=== PATIENT | male | born 1970 | race Caucasian/White ===

== ENCOUNTER 2019-08-22 06:43 | Emergency (ER) | payer SELFPAY ==
--- NOTE | 2019-08-22 07:27 | EDM.PDOC ---
ED HPI GENERAL MEDICAL PROBLEM - General Chief Complaint: Abdominal Pain Stated Complaint: BLOCKAGE Time Seen by Provider: 08/22/19 07:19 Source of Information: Reports: Patient History Limitations: Reports: No Limitations - History of Present Illness INITIAL COMMENTS - FREE TEXT/NARRATIVE: This 49 year old male is admitted to the ED with a chief complaint of upper abdominal pain with nausea and vomiting for three days. He complains of having at least 25 very loose stools over the past three days. He states that he feels that he has a "blockage". He denies chest pain or SOB He is status post appendectomy years ago. He denies any other symptoms at this time. Onset: Gradual (three days) Location: Reports: Abdomen Quality: Reports: Dull, Sharp Severity: Mild (to moderate) Associated Symptoms: Reports: Nausea/Vomiting, Other (diarrhea) Abdomen Pain Score (Numeric/FACES): 9 - Related Data Allergies Allergy/AdvReac Type Severity Reaction Status Date / Time doxycycline Allergy Rash Verified 08/22/19 06:56 Home Meds: Home Meds Pantoprazole Sodium [Protonix] 40 mg PO DAILY 30 Days #30 tablet. 08/22/19 [Rx ] metroNIDAZOLE [Flagyl] 500 mg PO DAILY 7 Days #7 tab 08/22/19 [Rx] Past Medical History HEENT History: Reports: None Cardiovascular History: Reports: None Respiratory History: Reports: None Gastrointestinal History: Reports: Other (See Below) Other Gastrointestinal History: Intestinal Obstruction Genitourinary History: Reports: None Musculoskeletal History: Reports: None Neurological History: Reports: None Psychiatric History: Reports: None Insulin Pump Model and Steam Box Hand: None Hematologic History: Reports: None Immunologic History: Reports: None Oncologic (Cancer) History: Reports: None Dermatologic History: Reports: None - Infectious Disease History Infectious Disease History: Reports: None - Past Surgical History Head Surgeries/Procedures: Reports: None Musculoskeletal Surgical History: Reports: Other (See Below) Other Musculoskeletal Surgeries/Procedures:: Back Surgery Social & Family History - Family History Family Medical History: Noncontributory - Tobacco Use Smoking Status *Q: Current Every Day Smoker Years of Tobacco use: 40 Packs/Tins Daily: 0.5 - Caffeine Use Caffeine Use: Reports: Coffee, Soda - Recreational Drug Use Recreational Drug Use: No ED ROS GENERAL - Review of Systems Review Of Systems: See Below Constitutional: Reports: No Symptoms HEENT: Reports: No Symptoms Respiratory: Reports: No Symptoms Cardiovascular: Reports: No Symptoms Endocrine: Reports: No Symptoms GI/Abdominal: Reports: Abdominal Pain, Diarrhea, Nausea, Vomiting : Reports: No Symptoms Musculoskeletal: Reports: No Symptoms Skin: Reports: No Symptoms Neurological: Reports: No Symptoms ED EXAM, GI/ABD - Physical Exam Exam: See Below Exam Limited By: No Limitations General Appearance: Alert (but was complaining of upper abdominal pain), WD/WN, No Apparent Distress Throat/Mouth: Normal Inspection, Normal Oropharynx, Normal Voice, No Airway Compromise Head: Atraumatic, Normocephalic Neck: Normal Inspection, Supple, Non-Tender, Full Range of Motion Respiratory/Chest: No Respiratory Distress, Lungs Clear, Normal Breath Sounds Cardiovascular: Normal Peripheral Pulses, Regular Rate, Rhythm, No Gallop, No JVD, No Murmur GI/Abdominal Exam: Soft, No Organomegaly, No Abnormal Bruit, No Mass, Distended , Tender (tenderness noted across the entire upper abdomen), Abnormal Bowel Sounds (hypoactive to hyper active) (Male) Exam: Deferred Rectal (Males) Exam: Normal Exam, Prostate Normal, Heme - Stool Back Exam: Normal Inspection Extremities: Normal Inspection, Normal Range of Motion, No Pedal Edema, Normal Capillary Refill Neurological: Alert, Oriented (times 4), CN II-XII Intact, Normal Cognition, Normal Reflexes Psychiatric: Normal Affect, Normal Mood Skin Exam: Warm, Dry, Intact, Normal Color, No Rash Lymphatic: No Adenopathy Course - Vital Signs Text/Narrative:: The patient will be discharged. He most likely has gastroenteritis and probably passed a kidney stone. He will be discharged. He agrees with the discharge plan. Last Recorded V/S: Last Vital Signs Temp 97.1 F 08/22/19 11:48 Pulse 70 08/22/19 11:48 Resp 18 08/22/19 11:48 BP 135/94 H 08/22/19 11:48 Pulse Ox 99 08/22/19 11:48 - Orders/Labs/Meds Orders: Active Orders 24 hr Category Date Time Status Pantoprazole [ProTONIX IV] 40 mg Med 08/23/19 11:54 Active Sodium Chloride 0.9% [Normal Saline] 10 ml IV ONETIME metroNIDAZOLE/Normal Saline [Flagyl 500 MG in NS 100 ML Med 08/22/19 11:52 Active ] 500 mg Premix Bag 1 bag IV ONETIME Medication Orders Metronidazole 500 mg/ Premix 100 mls @ 100 mls/hr IV ONETIME ONE Stop: 08/22/19 12:51 Pantoprazole Sodium 40 mg/ (Sodium Chloride) 10 mls @ 300 mls/hr IV ONETIME ONE Stop: 08/23/19 11:55 Labs: Laboratory Tests 08/22/19 08/22/19 08/22/19 Range/Units 07:20 07:20 07:35 WBC 9.08 (4.0-11.0) K/uL RBC 4.82 (4.50-5.90) M/uL Hgb 15.1 (13.0-17.0) g/dL Hct 44.5 (38.0-50.0) % MCV 92.3 (80.0-98.0) fL MCH 31.3 (27.0-32.0) pg MCHC 33.9 (31.0-37.0) g/dL RDW Std Deviation 42.7 (28.0-62.0) fl RDW Coeff of Daniel 13 (11.0-15.0) % Plt Count 247 (150-400) K/uL MPV 9.40 (7.40-12.00) fL Neut % (Auto) 70.3 (48.0-80.0) % Lymph % (Auto) 16.2 (16.0-40.0) % [place] % (Auto) 11.7 (0.0-15.0) % Eos % (Auto) 1.7 (0.0-7.0) % Baso % (Auto) 0.1 (0.0-1.5) % Neut # (Auto) 6.4 H (1.4-5.7) K/uL Lymph # (Auto) 1.5 (0.6-2.4) K/uL [place] # (Auto) 1.1 H (0.0-0.8) K/uL Eos # (Auto) 0.2 (0.0-0.7) K/uL Baso # (Auto) 0.0 (0.0-0.1) K/uL Nucleated RBC % 0.0 /100WBC Nucleated RBCs # 0 K/uL Sodium 141 (136-148) mmol/L Potassium 3.6 (3.5-5.1) mmol/L Chloride 105 (98-107) mmol/L Carbon Dioxide 27.4 (21.0-32.0) mmol/L BUN 11 (7.0-18.0) mg/dL Creatinine 0.9 (0.8-1.3) mg/dL Est Cr Clr Drug Dosing 98.19 mL/min Estimated GFR (MDRD) > 60.0 ml/min Glucose 105 (74-106) mg/dL Calcium 8.6 (8.5-10.1) mg/dL Magnesium 1.8 (1.8-2.4) mg/dL Total Bilirubin 0.5 (0.2-1.0) mg/dL AST 12 L (15-37) IU/L ALT 22 (14-63) IU/L Alkaline Phosphatase 85 (46-116) U/L Total Protein 6.6 (6.4-8.2) g/dL Albumin 3.5 (3.4-5.0) g/dL Globulin 3.1 (2.6-4.0) g/dL Albumin/Globulin Ratio 1.1 (0.9-1.6) Lipase 47 L (73-393) U/L Urine Color DARK YELLOW Urine Appearance SLT CLOUDY Urine pH 6.0 (5.0-8.0) Ur Specific [place] >= 1.030 (1.001-1.035) Urine Protein NEGATIVE (NEGATIVE) mg/dL Urine Glucose (UA) NEGATIVE (NEGATIVE) mg/dL Urine Ketones NEGATIVE (NEGATIVE) mg/dL Urine Occult Blood LARGE H (NEGATIVE) Urine Nitrite NEGATIVE (NEGATIVE) Urine Bilirubin NEGATIVE (NEGATIVE) Urine Urobilinogen 0.2 (<2.0) EU/dL Ur Leukocyte Esterase NEGATIVE (NEGATIVE) Urine RBC 10-15 (0-2/HPF) Urine WBC 1-2 (0-5/HPF) Ur Epithelial Cells RARE (NONE-FEW) Calcium Oxalate Crystal MANY (NEGATIVE) Urine Bacteria FEW (NEGATIVE) Urine Mucus MODERATE (NONE-MOD) Meds: Medications Generic Name Dose Route Start Last Admin Trade Name Freq PRN Reason Stop Dose Admin Metronidazole 500 mg/ Premix 100 mls @ 100 mls/hr 08/22/19 11:52 IV 08/22/19 12:51 ONETIME ONE Pantoprazole Sodium 40 mg/ 10 mls @ 300 mls/hr 08/23/19 11:54 Sodium Chloride IV 08/23/19 11:55 ONETIME ONE Discontinued Medications Generic Name Dose Route Start Last Admin Trade Name Jas PRN Reason Stop Dose Admin Sodium Chloride 1,000 mls @ 1,000 mls/hr 08/22/19 07:34 08/22/19 07:43 Normal Saline IV 08/22/19 08:33 1,000 mls/hr .Bolus ONE Administration Metronidazole Confirm 08/22/19 11:59 Flagyl 500 Mg In Ns 100 Ml Administered 08/22/19 12:00 Dose 100 mls @ as directed .ROUTE .STK-MED ONE Iopamidol 100 ml 08/22/19 08:27 08/22/19 08:27 Isovue Multipack-370 (76%) IVPUSH 08/22/19 08:28 100 ml ONETIME ONE Administration Morphine Sulfate 4 mg 08/22/19 07:59 08/22/19 08:08 Morphine IVPUSH 08/22/19 08:00 4 mg ONETIME ONE Administration Ondansetron HCl 4 mg 08/22/19 07:34 08/22/19 07:43 Zofran IVPUSH 08/22/19 07:35 4 mg ONETIME ONE Administration Departure - Departure Time of Disposition: 12:08 Disposition: Home, Self-Care 01 Condition: Good Clinical Impression: Gastroenteritis, Hematuria of unknown etiology - Discharge Information *PRESCRIPTION DRUG MONITORING PROGRAM REVIEWED*: Yes *COPY OF PRESCRIPTION DRUG MONITORING REPORT IN PATIENT RODOLFO: Yes Prescriptions: metroNIDAZOLE [Flagyl] 500 mg PO DAILY 7 Days #7 tab Pantoprazole Sodium [Protonix] 40 mg PO DAILY 30 Days #30 tablet. Instructions: Viral Gastroenteritis, Adult, [id number], Hematuria, Adult Referrals: PCP,None [Primary Care Provider] - Forms: ED Department Discharge Additional Instructions: Take all medications as directed. Follow up with your PCP in the next two to four days. Also, follow up with a Urologist for further evaluation of the blood in your urine. Drink plenty of clear liquids for the next 24-48 hours. Rest for the next 24 hours. Return to the ED if your condition gets worse or should you have any questions or concerns. The following information is given to patients seen in the emergency department who are being discharged to home. This information is to outline your options for follow-up care. We provide all patients seen in our emergency department with a follow-up referral. The need for follow-up, as well as the timing and circumstances, are variable depending upon the specifics of your emergency department visit. If you don't have a primary care physician on staff, we will provide you with a referral. We always advise you to contact your personal physician following an emergency department visit to inform them of the circumstance of the visit and for follow-up with them and/or the need for any referrals to a consulting specialist. The emergency department will also refer you to a specialist when appropriate. This referral assures that you have the opportunity for follow-up care with a specialist. All of these measure are taken in an effort to provide you with optimal care, which includes your follow-up. Under all circumstances we always encourage you to contact your private physician who remains a resource for coordinating your care. When calling for follow-up care, please make the office aware that this follow-up is from your recent emergency room visit. If for any reason you are refused follow-up, please contact the [facility] Emergency Department at and asked to speak to the emergency department charge nurse. Sepsis Event Note - Evaluation Sepsis Screening Result: No Definite Risk - Focused Exam Vital Signs: Vital Signs Temp Pulse Resp BP Pulse Ox 08/22/19 11:48 97.1 F 70 18 135/94 H 99 08/22/19 11:27 145/97 H 08/22/19 09:55 75 18 135/87 97 08/22/19 09:35 77 18 143/92 H 97 08/22/19 09:05 72 18 153/99 H 08/22/19 08:10 78 18 151/93 H 98 08/22/19 07:55 77 139/89 97 08/22/19 06:59 97.3 F 72 18 136/101 H 98 Date Exam was Performed: 08/22/19 Time Exam was Performed: 12:08 - My Orders Last 24 Hours: My Active Orders 08/22/19 11:52 metroNIDAZOLE/Normal Saline [Flagyl 500 MG in NS 100 ML] 500 mg Premix Bag 1 bag IV ONETIME 08/23/19 11:54 Pantoprazole [ProTONIX IV] 40 mg Sodium Chloride 0.9% [Normal Saline] 10 ml IV ONETIME - Assessment/Plan Last 24 Hours: My Active Orders 08/22/19 11:52 metroNIDAZOLE/Normal Saline [Flagyl 500 MG in NS 100 ML] 500 mg Premix Bag 1 bag IV ONETIME 08/23/19 11:54 Pantoprazole [ProTONIX IV] 40 mg Sodium Chloride 0.9% [Normal Saline] 10 ml IV ONETIME
[2019-08-22] MEDS ORDERED: Ondansetron 4 MG/2 ML SDV IVPUSH ONE (07:34)
[2019-08-22] MEDS ORDERED: Sodium Chloride 0.9% 1,000 ML IV ONE (07:34)
[2019-08-22 07:56] LABS: BLOOD UREA NITROGEN,BUN 11 mg/dL (7.0-18.0); CARBON DIOXIDE,CO2 27.4 mmol/L (21.0-32.0); CHLORIDE,CL 105 mmol/L (98-107); GLUCOSE RANDOM 105 mg/dL (74-106); LIPASE 47 U/L (73-393); POTASSIUM,K 3.6 mmol/L (3.5-5.1); SODIUM,NA 141 mmol/L (136-148)
[2019-08-22] MEDS ORDERED: Morphine 4 MG/ML Syringe IVPUSH ONE (07:59)
--- NOTE | 2019-08-22 08:13 | CR ---
Chest: Portable view of the chest was obtained. Comparison: No prior chest imaging. Heart size and mediastinum are normal. Lungs are clear with no acute parenchymal change. Bony structures are grossly intact. Impression: 1. Nothing acute is appreciated on portable chest x-ray. Diagnostic code #1 Study was dictated in MDT
[2019-08-22] MEDS ORDERED: Iopamidol 755 MG/ML 500 ML Multipack Bottle IVPUSH ONE (08:27)
--- NOTE | 2019-08-22 08:50 | CT ---
CT abdomen and pelvis Technique: Multiple axial sections were obtained from above the dome of the diaphragm inferiorly through the pubic symphysis. Intravenous contrast was utilized. No oral contrast has been given. Comparison: No prior abdominal imaging. Findings: Visualized lung bases show nothing acute. Liver contains no focal parenchymal abnormality. Spleen appears within normal limits. Adrenal glands show no nodule. Pancreas is within normal limits. Kidneys show symmetric contrast enhancement without hydronephrosis or mass. Aorta shows atherosclerotic calcification which continues into the iliac vessels. No retroperitoneal adenopathy or mesenteric abnormalities are seen. No pelvic mass or adenopathy is identified. Appendix not visualized with certainty. No free fluid or inflammatory change is identified. Bone window settings were reviewed. Prior surgery noted at L5-S1 with transpedicular screws. Minimal fat-containing umbilical hernia is noted. Impression: 1. Findings as noted above which are felt to be nonacute and incidental. 2. Nothing acute is appreciated. Diagnostic code #2 Study was dictated in MDT
[2019-08-22] MEDS ORDERED: metroNIDAZOLE/Normal Saline 500 MG in Premix Bag 1 BAG IV ONE (11:52)
[2019-08-22] MEDS ORDERED: metroNIDAZOLE/Normal Saline 100 ML ONE (11:59)
[2019-08-23] MEDS ORDERED: Pantoprazole 40 MG in Sodium Chloride 0.9% 10 ML IV ONE (11:54)
== END 2019-08-22 13:29 | disposition home or self-care (01) ==
LOC: MW.ED 06:43
DX: K52.9 Noninfective gastroenteritis and colitis, unspecified (principal); R31.9 Hematuria, unspecified; F17.210 Nicotine dependence, cigarettes, uncomplicated; Z88.1 Allergy status to other antibiotic agents
CPT/HCPCS: 36415; 71045; 74177; 80053; 81001; 83690; 83735; 85025; 96361; 96365; 96375; 99284; C9113; J2270; J2405; J3490; J7030; J7050; Q9967; 99283

== ENCOUNTER 2020-05-07 02:35 | Emergency (ER) | payer OTHER ==
[2020-05-07] MEDS ORDERED: Sodium Chloride 0.9% 1,000 ML IV ONE (03:06)
[2020-05-07] MEDS ORDERED: Sodium Chloride 0.9% 10 ML Syringe FLUSH PRN (03:06)
[2020-05-07] MEDS ORDERED: Ondansetron 4 MG/2 ML SDV IVPUSH ONE (03:06)
[2020-05-07] MEDS ORDERED: Sodium Chloride 0.9% 2.5 ML Syringe FLUSH PRN (03:06)
[2020-05-07] MEDS ORDERED: Pantoprazole 40 MG in Sodium Chloride 0.9% 10 ML IV ONE (03:06)
[2020-05-07] MEDS ORDERED: Morphine 4 MG/ML Syringe IVPUSH ONE (03:06)
--- NOTE | 2020-05-07 04:08 | CT ---
Indication: Abdominal pain Technique: Nonenhanced axial CT imaging through the abdomen and pelvis. Sagittal and coronal reconstructions are provided. Comparison: CT abdomen pelvis with contrast 08/22/2019 Findings: There is unremarkable noncontrast appearance of the liver, gallbladder, spleen, pancreas, and adrenal glands. No lymphadenopathy is demonstrated in the abdomen and pelvis. There is normal caliber of the abdominal aorta. There is normal renal parenchymal attenuation without hydronephrosis. No stones are seen in the renal collecting systems, ureters, or urinary bladder. The stomach and duodenum are unremarkable. Prominent fluid filled small bowel loops are seen throughout the abdomen. There is no abrupt caliber transition to suggest bowel obstruction. The appendix is not visualized. Mild diverticulosis is noted in the sigmoid colon. There is no colonic wall thickening. There is no mesenteric edema or intraperitoneal free fluid. Stable surgical changes of Interbody fusion with posterior fixation are noted at L5-S1. The included lung bases are clear. Impression: Mild small-bowel distention with fluid, without evidence of bowel obstruction. Otherwise no acute process is demonstrated in the abdomen pelvis. Please note that all CT scans at this facility use dose modulation, iterative reconstruction, and/or weight-based dosing when appropriate to reduce radiation dose to as low as reasonably achievable. Dictated by Kalee Baumann MD @ May 07 2020 4:00AM Signed by Dr. Kalee Baumann @ May 07 2020 4:08AM
[2020-05-07 04:26] LABS: BLOOD UREA NITROGEN,BUN 15 mg/dL (7.0-18.0); CARBON DIOXIDE,CO2 28.4 mmol/L (21.0-32.0); CHLORIDE,CL 104 mmol/L (98-107); GLUCOSE RANDOM 129 mg/dL (74-106); LIPASE 53 U/L (73-393); POTASSIUM,K 4.2 mmol/L (3.5-5.1); SODIUM,NA 140 mmol/L (136-148)
[2020-05-07] MEDS ORDERED: Iopamidol 755 MG/ML 500 ML Multipack Bottle IVPUSH STA (05:19)
--- NOTE | 2020-05-07 05:50 | CT ---
Indication: Abdominal pain, leukocytosis, elevated lactic acid Technique: Contrast enhanced axial CT imaging through the abdomen and pelvis. 100 mL Isovue 370 contrast agent was administered intravenously. Sagittal and coronal reconstructions are provided. Comparison: CT abdomen and pelvis without contrast 05/07/2020, CT abdomen pelvis with contrast 08/22/2019 Findings: No abnormalities are demonstrated relating to the liver, gallbladder, spleen, pancreas, adrenal glands, and kidneys. There is no abdominal or pelvic lymphadenopathy. The portal vein, hepatic veins, IVC, and renal veins are patent. There is atherosclerosis of the infrarenal aorta without stenosis or aneurysm. The celiac trunk, superior mesenteric artery, and inferior mesenteric artery, and renal arteries are patent. The stomach and duodenum are unremarkable. Again noted are multiple prominent fluid filled small bowel loops throughout the abdomen, without evidence of obstruction. There is no bowel wall thickening, pneumatosis, or portal venous gas. Mild sigmoid diverticulosis is again seen. There is no colonic wall thickening. There is no mesenteric edema or intraperitoneal free fluid. Stable surgical changes of Interbody fusion with posterior fixation are noted at L5-S1. The included lung bases are clear. Impression: No acute process demonstrated in the abdomen pelvis. No evidence of bowel obstruction or mesenteric ischemia. Please note that all CT scans at this facility use dose modulation, iterative reconstruction, and/or weight-based dosing when appropriate to reduce radiation dose to as low as reasonably achievable. Dictated by Kalee Baumann MD @ May 07 2020 5:40AM Signed by Dr. Kalee Baumann @ May 07 2020 5:49AM
[2020-05-07] MEDS ORDERED: Alum Hydrox/Mag Hydrox/Simeth 15 ML, Metoclopramide 5 MG, Lidocaine 2% 5 ML PO ONE ×3 (06:09)
--- NOTE | 2020-05-07 06:14 | EDM.PDOC ---
ED HPI GENERAL MEDICAL PROBLEM - General Chief Complaint: Abdominal Pain Stated Complaint: STOMACH PAIN Time Seen by Provider: 05/07/20 03:02 - History of Present Illness INITIAL COMMENTS - FREE TEXT/NARRATIVE: HISTORY AND PHYSICAL: History of present illness: This is a 50-year-old gentleman with a history significant for pancreatitis x1 (patient reports presumed secondary to alcohol ) approximately 10 years ago's who presents ER today complaining of diffuse abdominal pain x1 day with associated nausea and vomiting. Patient ports that the pain is diffuse but greatest in the midepigastric region. Patient denies any history of hypertension, diabetes, liver, lung, kidney problems. Patient denies any prior abdominal or chest surgeries. Patient denies any alcohol or drugs. Patient denies any recent fevers, shakes, chills, dysuria, frequency, urgency, hematuria. Patient reports that he has no diarrhea. He reports he has been moving his bowels normally with his last problem 2 days ago. Patient reports that he has been passing gas frequently. Patient reports he has had multiple episodes of nausea and vomiting. Patient reports his last p.o. intake was yesterday when he tried eating soup but vomited shortly thereafter. Patient denies any hematemesis or coffee-ground emesis. Patient denies any melena or hematochezia. Patient denies any sore throat. Patient reports he had similar pain in the past and was told that he had stones in his stool. Patient reports that he feels distended. Review of systems: As per history of present illness and below otherwise all systems reviewed and negative. Past medical history: As per history of present illness and as reviewed below otherwise noncontributory. Surgical history: As per history of present illness and as reviewed below otherwise noncontributory. Social history: No reported history of drug or alcohol abuse. Family history: As per history of present illness and as reviewed below otherwise noncontributory. Physical exam: HEENT: Atraumatic, normocephalic, pupils reactive, negative for conjunctival pallor or scleral icterus, mucous membranes moist, throat clear, neck supple, nontender, trachea midline. Lungs: Clear to auscultation, breath sounds equal bilaterally, chest nontender. Heart: S1S2, regular Abd: Soft, nondistended, no rebound/guarding, no psoas or obturator signs, no tenderness at Mcberney's point, no Griffin's sign. Normal active bowel sounds pt does not present with an exam that would be consistent with an acute surgical abdomen at this time, diffuse mild tenderness throughout. Genitourinary: Deferred. Rectal: Deferred. Extremities: Atraumatic, negative for cords or calf pain. Neurovascular unremarkable. Neuro: Awake, alert, oriented. Cranial nerves II through XII unremarkable. Cerebellum unremarkable. Motor and sensory unremarkable throughout. Exam nonfocal. Diagnostics: Patient's labs were significant for an elevated WBC count of 18.5. Patient's lactic acid was slightly elevated at 2.3. Patient's electrolytes were within normal limits. Patient has no evidence of anion gap acidosis, patient's liver function tests were within normal limits. Patient's urinalysis was normal. Patient's alcohol level was 0. Patient's coronavirus test is negative. Patient had a CT scan of his abdomen pelvis without contrast: Mild small bowel distention with fluid, without evidence of obstruction. Otherwise no acute process is demonstrated in the abdomen or pelvis. Patient is CT scan of his abdomen and pelvis with contrast following: No abnormalities are demonstrated relating to the liver, gallbladder, spleen, pancreas, adrenal glands and kidneys. There is no abdominal or pelvic lymphadenopathy. The portal vein, hepatic veins, IVC and renal veins are patent. There is atherosclerosis of the infrarenal aorta without stenosis or aneurysm. The celiac trunk, superior mesenteric artery, inferior mesenteric artery and renal arteries are patent. The stomach and duodenum are unremarkable. Again noted are multiple prominent fluid filled small bowel loops throughout the abdomen without evidence of obstruction. There is no bowel wall thickening, pneumatosis or portal vein gas. Mild sigmoid diverticulosis is again seen. There is no colonic wall thickening. There is no mesenteric edema or intraperitoneal free fluid. Therapeutics: Patient was given Zofran, morphine, Protonix upon arrival to the ED to assist with his pain and discomfort. Patient received normal saline solution. After CT scans were obtained and patient tolerated p.o. solids and liquids, the patient was given a dose of a GI cocktail and will be reassessed. Patient was reevaluated after receiving the GI cocktail reports he was able to tolerate it well and that the sulfur smelling belches that he has been having have significantly diminished. Patient was able to tolerate water as well as ivette crackers without difficulty and is requesting more. Patient is resting comfortably in bed. 6:45 AM: Abd: Soft, nondistended, no rebound/guarding, no psoas or obturator signs, no tenderness at Mcberney's point, no Griffin's sign. Pt does not present with an exam that would be consistent with an acute surgical abdomen at this time, nontender to palpation, normal active bowel sounds. Assessment and plan: This is a 50-year-old gentleman who presents ER today complaining of abdominal distention and abdominal pain x1 day with associated nausea and vomiting. Patient's ER work-up is been unremarkable. Patient does have an elevated WBC count of 18.5 with a slightly elevated lactic acid of 2.3. It is unclear whether or not this is related to abdominal pathology versus dehydration versus gastroenteritis versus early small bowel traction. Given patient's normal CT scan except for some fluid-filled small bowel loops throughout the abdomen, it does not appear that he has any significant life-threatening or emergent abdominal pathology. Patient likely has gastroenteritis causing the symptoms versus other pathology that might cause him to have fluid in the small bowel. Patient was reevaluated multiple times in the ED throughout his ER visit he has maintained a nonsurgical abdominal exam. Patient has normal active bowel sounds. I have offered admission to the patient for observation however given that his exam is improving and his symptoms are improving and no significant pathology was identified on his CAT scan, the patient does not feel that he would like to be admitted to the hospital and feels comfortable being discharged home and will return to the ER if things worsen or if they do not improve. Patient will be discharged home with Patito and Ebony. I have discussed with the patient the importance of following up with a primary care physician or one of the clinics for reevaluation of his blood pressure as soon as possible to determine the need for antihypertensive medications as an outpatient. Reassessment at the time of disposition demonstrates that the patient is in no acute distress. The patient has remained stable throughout the entire ED visit and is without objective evidence for acute process requiring urgent intervention or hospitalization. The patient is stable for discharge, counseling is provided as documented above, discussed symptomatic treatment and specific conditions for return. I have spoken with the patient/caregiver and discussed todays findings, in betsey tion to providing specific details for the plan of care. Questions are answered and there is agreement with the plan. Definitive disposition and diagnosis as appropriate pending reevaluation and review of above. Abdomen Pain Score (Numeric/FACES): 7 - Related Data Allergies Allergy/AdvReac Type Severity Reaction Status Date / Time doxycycline Allergy Rash Verified 05/07/20 02:46 Home Meds: Home Meds Dicyclomine [Bentyl] 20 mg PO TID PRN #12 tab 05/07/20 [Rx] Ondansetron [Zofran ODT] 4 mg PO Q6H PRN #12 tab.dis 05/07/20 [Rx] Past Medical History HEENT History: Reports: None Cardiovascular History: Reports: Hypertension Respiratory History: Reports: None Gastrointestinal History: Reports: Pancreatitis, Other (See Below) Other Gastrointestinal History: Intestinal Obstruction Genitourinary History: Reports: None Musculoskeletal History: Reports: None Neurological History: Reports: None Psychiatric History: Reports: None Endocrine/Metabolic History: Reports: None Insulin Pump Model and Global Security Architect: None Hematologic History: Reports: None Immunologic History: Reports: None Oncologic (Cancer) History: Reports: None Dermatologic History: Reports: None - Infectious Disease History Infectious Disease History: Reports: None - Past Surgical History Head Surgeries/Procedures: Reports: None Other Cardiovascular Surgeries/Procedures: states not taking any meds Musculoskeletal Surgical History: Reports: Other (See Below) Other Musculoskeletal Surgeries/Procedures:: Back Surgery Social & Family History - Family History Family Medical History: No Pertinent Family History - Tobacco Use Tobacco Use Status *Q: Current Every Day Tobacco User Years of Tobacco use: 20 Packs/Tins Daily: 0.5 - Caffeine Use Caffeine Use: Reports: Energy Drinks - Recreational Drug Use Recreational Drug Use: No ED ROS GENERAL - Review of Systems Review Of Systems: See Below ED EXAM, GENERAL - Physical Exam Exam: See Below #1 Interpretation EKG Interpretation Comments: EKG: As interpreted by ER physician: Jamie: Nonspecific ST-T wave abnormalities Normal axis No evidence of ST elevation NM Normal sinus rhythm heart rate of 88 Course - Vital Signs Last Recorded V/S: Last Vital Signs Temp 98.5 F 05/07/20 02:45 Pulse 90 05/07/20 05:39 Resp 18 05/07/20 05:39 BP 173/114 H 05/07/20 05:39 Pulse Ox 97 05/07/20 05:39 - Orders/Labs/Meds Orders: Active Orders 24 hr Category Date Time Status EKG Documentation Completion [RC] AM Care 05/07/20 03:06 Active Sodium Chloride 0.9% [Saline Flush] Med 05/07/20 03:06 Active 10 ml FLUSH ASDIRECTED PRN Sodium Chloride 0.9% [Saline Flush] Med 05/07/20 03:06 Active 2.5 ml FLUSH ASDIRECTED PRN Saline Lock Insert [OM.PC] Stat Oth 05/07/20 03:06 Ordered Medication Orders Sodium Chloride (Saline Flush) 10 ml FLUSH ASDIRECTED PRN PRN Reason: Keep Vein Open Sodium Chloride (Saline Flush) 2.5 ml FLUSH ASDIRECTED PRN PRN Reason: Keep Vein Open Labs: Laboratory Tests 05/07/20 05/07/20 05/07/20 Range/Units 03:30 03:30 03:50 WBC 18.52 H (4.0-11.0) K/uL RBC 5.37 (4.50-5.90) M/uL Hgb 16.7 (13.0-17.0) g/dL Hct 49.5 (38.0-50.0) % MCV 92.2 (80.0-98.0) fL MCH 31.1 (27.0-32.0) pg MCHC 33.7 (31.0-37.0) g/dL RDW Std Deviation 42.1 (28.0-62.0) fl RDW Coeff of Daniel 13 (11.0-15.0) % Plt Count 258 (150-400) K/uL MPV 10.00 (7.40-12.00) fL Neut % (Auto) 87.3 H (48.0-80.0) % Lymph % (Auto) 2.8 L (16.0-40.0) % [place] % (Auto) 9.1 (0.0-15.0) % Eos % (Auto) 0.7 (0.0-7.0) % Baso % (Auto) 0.1 (0.0-1.5) % Neut # (Auto) 16.2 H (1.4-5.7) K/uL Lymph # (Auto) 0.5 L (0.6-2.4) K/uL [place] # (Auto) 1.7 H (0.0-0.8) K/uL Eos # (Auto) 0.1 (0.0-0.7) K/uL Baso # (Auto) 0.0 (0.0-0.1) K/uL Nucleated RBC % 0.0 /100WBC Nucleated RBCs # 0 K/uL Lactate (0.20-2.00) mmol/L Sodium (136-148) mmol/L Potassium (3.5-5.1) mmol/L Chloride (98-107) mmol/L Carbon Dioxide (21.0-32.0) mmol/L BUN (7.0-18.0) mg/dL Creatinine (0.8-1.3) mg/dL Est Cr Clr Drug Dosing mL/min Estimated GFR (MDRD) ml/min Glucose (74-106) mg/dL Calcium (8.5-10.1) mg/dL Total Bilirubin (0.2-1.0) mg/dL AST (15-37) IU/L ALT (14-63) IU/L Alkaline Phosphatase (46-116) U/L Troponin I (0.000-0.056) ng/mL Total Protein (6.4-8.2) g/dL Albumin (3.4-5.0) g/dL Globulin (2.6-4.0) g/dL Albumin/Globulin Ratio (0.9-1.6) Lipase (73-393) U/L Urine Color YELLOW Urine Appearance SLT CLOUDY Urine pH 7.5 (5.0-8.0) Ur Specific [place] 1.020 (1.001-1.035) Urine Protein NEGATIVE (NEGATIVE) mg/dL Urine Glucose (UA) NEGATIVE (NEGATIVE) mg/dL Urine Ketones NEGATIVE (NEGATIVE) mg/dL Urine Occult Blood TRACE-INTACT H (NEGATIVE) Urine Nitrite NEGATIVE (NEGATIVE) Urine Bilirubin NEGATIVE (NEGATIVE) Urine Urobilinogen 0.2 (<2.0) EU/dL Ur Leukocyte Esterase NEGATIVE (NEGATIVE) Urine RBC 2-4 (0-2/HPF) Urine WBC 0-1 (0-5/HPF) Ur Epithelial Cells RARE (NONE-FEW) Amorphous Sediment FEW (NEGATIVE) Urine Bacteria 1+ H (NEGATIVE) Urine Mucus LIGHT (NONE-MOD) Ethyl Alcohol mg/dL SARS-CoV-2 RNA (BEATRICE) NEGATIVE (NEGATIVE) 05/07/20 05/07/20 Range/Units 03:50 03:50 WBC (4.0-11.0) K/uL RBC (4.50-5.90) M/uL Hgb (13.0-17.0) g/dL Hct (38.0-50.0) % MCV (80.0-98.0) fL MCH (27.0-32.0) pg MCHC (31.0-37.0) g/dL RDW Std Deviation (28.0-62.0) fl RDW Coeff of Daniel (11.0-15.0) % Plt Count (150-400) K/uL MPV (7.40-12.00) fL Neut % (Auto) (48.0-80.0) % Lymph % (Auto) (16.0-40.0) % [place] % (Auto) (0.0-15.0) % Eos % (Auto) (0.0-7.0) % Baso % (Auto) (0.0-1.5) % Neut # (Auto) (1.4-5.7) K/uL Lymph # (Auto) (0.6-2.4) K/uL [place] # (Auto) (0.0-0.8) K/uL Eos # (Auto) (0.0-0.7) K/uL Baso # (Auto) (0.0-0.1) K/uL Nucleated RBC % /100WBC Nucleated RBCs # K/uL Lactate 2.3 H* (0.20-2.00) mmol/L Sodium 140 (136-148) mmol/L Potassium 4.2 (3.5-5.1) mmol/L Chloride 104 (98-107) mmol/L Carbon Dioxide 28.4 (21.0-32.0) mmol/L BUN 15 (7.0-18.0) mg/dL Creatinine 1.0 (0.8-1.3) mg/dL Est Cr Clr Drug Dosing 87.39 mL/min Estimated GFR (MDRD) > 60.0 ml/min Glucose 129 H (74-106) mg/dL Calcium 8.4 L (8.5-10.1) mg/dL Total Bilirubin 0.5 (0.2-1.0) mg/dL AST 24 (15-37) IU/L ALT 30 (14-63) IU/L Alkaline Phosphatase 83 (46-116) U/L Troponin I < 0.050 (0.000-0.056) ng/mL Total Protein 7.0 (6.4-8.2) g/dL Albumin 3.7 (3.4-5.0) g/dL Globulin 3.3 (2.6-4.0) g/dL Albumin/Globulin Ratio 1.1 (0.9-1.6) Lipase 53 L (73-393) U/L Urine Color Urine Appearance Urine pH (5.0-8.0) Ur Specific [place] (1.001-1.035) Urine Protein (NEGATIVE) mg/dL Urine Glucose (UA) (NEGATIVE) mg/dL Urine Ketones (NEGATIVE) mg/dL Urine Occult Blood (NEGATIVE) Urine Nitrite (NEGATIVE) Urine Bilirubin (NEGATIVE) Urine Urobilinogen (<2.0) EU/dL Ur Leukocyte Esterase (NEGATIVE) Urine RBC (0-2/HPF) Urine WBC (0-5/HPF) Ur Epithelial Cells (NONE-FEW) Amorphous Sediment (NEGATIVE) Urine Bacteria (NEGATIVE) Urine Mucus (NONE-MOD) Ethyl Alcohol <3 mg/dL SARS-CoV-2 RNA (BEATRICE) (NEGATIVE) Meds: Medications Generic Name Dose Route Start Last Admin Trade Name Freq PRN Reason Stop Dose Admin Sodium Chloride 10 ml 05/07/20 03:06 Saline Flush FLUSH ASDIRECTED PRN Keep Vein Open Sodium Chloride 2.5 ml 05/07/20 03:06 Saline Flush FLUSH ASDIRECTED PRN Keep Vein Open Discontinued Medications Generic Name Dose Route Start Last Admin Trade Name Freq PRN Reason Stop Dose Admin Al Hydroxide/Mg Hydroxide 15 0 ml 05/07/20 06:09 05/07/20 06:14 ml/ Metoclopramide HCl 5 mg/ PO 05/07/20 06:10 25 each Lidocaine HCl 5 ml ONETIME ONE Administration Sodium Chloride 1,000 mls @ 999 mls/hr 05/07/20 03:06 05/07/20 03:15 Normal Saline IV 05/07/20 04:06 999 mls/hr .Bolus ONE Administration Pantoprazole Sodium 40 mg/ 10 mls @ 300 mls/hr 05/07/20 03:06 05/07/20 03:15 Sodium Chloride IV 05/07/20 03:07 300 mls/hr NOW ONE Administration Iopamidol 100 ml 05/07/20 05:19 05/07/20 05:19 Isovue Multipack-370 (76%) IVPUSH 05/07/20 05:20 100 ml ONETIME STA Administration Morphine Sulfate 4 mg 05/07/20 03:06 05/07/20 03:16 Morphine IVPUSH 05/07/20 03:07 4 mg ONETIME ONE Administration Ondansetron HCl 4 mg 05/07/20 03:06 05/07/20 03:16 Zofran IVPUSH 05/07/20 03:07 4 mg ONETIME ONE Administration Departure - Departure Time of Disposition: 06:23 Disposition: Home, Self-Care 01 Clinical Impression: Abdominal pain, Vomiting, Dehydration, Leukocytosis, Elevated lactic acid level, Hypertension - Discharge Information Prescriptions: Dicyclomine [Bentyl] 20 mg PO TID PRN #12 tab PRN Reason: Abdominal Pain Ondansetron [Zofran ODT] 4 mg PO Q6H PRN #12 tab.dis PRN Reason: Nausea Instructions: Abdominal Pain, Adult, Nausea and Vomiting, Adult, [id number], Dehydration, Adult, [id number], Hypertension, Adult, [id number] Referrals: PCP,None [Primary Care Provider] - Forms: ED Department Discharge Additional Instructions: You were seen and evaluated in the emergency department for your abdominal pain. The work-up that we performed here in the ED did not reveal an exact cause of the pain that you are experiencing. The CT scan of the abdomen pelvis with and without IV contrast were both unremarkable except for some extra fluid that was identified within your small bowel. This can sometimes be seen with any type of irritation or inflammation of your small bowel. This can also sometimes be seen if you have a stomach virus. The rest of your labs were unremarkable except for white count that was elevated. This can be seen with infection or with dehydration. You will be discharged home with a prescription for Zofran to assist you with nausea and a prescription for Bentyl to help you with stomach cramps. Please return to the ER if your pain is not improved within 12 to 24 hours or if your pain worsens or if you have any new or concerning symptoms. Otherwise please make an appointment to see your family doctor in 1 to 2 days to be reevaluated. The following information is given to patients seen in the emergency department who are being discharged to home. This information is to outline your options for follow-up care. We provide all patients seen in our emergency department with a follow-up referral. The need for follow-up, as well as the timing and circumstances, are variable depending upon the specifics of your emergency department visit. If you don't have a primary care physician on staff, we will provide you with a referral. We always advise you to contact your personal physician following an emergency department visit to inform them of the circumstance of the visit and for follow-up with them and/or the need for any referrals to a consulting specialist. The emergency department will also refer you to a specialist when appropriate. This referral assures that you have the opportunity for follow-up care with a specialist. All of these measure are taken in an effort to provide you with optimal care, which includes your follow-up. Under all circumstances we always encourage you to contact your private physician who remains a resource for coordinating your care. When calling for follow-up care, please make the office aware that this follow-up is from your recent emergency room visit. If for any reason you are refused follow-up, please contact the [facility] Emergency Department at and asked to speak to the emergency department charge nurse. [facility] - Primary Care [address] [place] [address] [id number] Sepsis Event Note (ED) - Evaluation Sepsis Screening Result: No Definite Risk - Focused Exam Vital Signs: Vital Signs Temp Pulse Resp BP Pulse Ox 05/07/20 05:39 90 18 173/114 H 97 05/07/20 04:05 88 18 164/105 H 97 05/07/20 02:45 98.5 F 85 18 161/111 H 97 - My Orders Last 24 Hours: My Active Orders 05/07/20 03:06 EKG Documentation Completion [RC] AM Sodium Chloride 0.9% [Saline Flush] 10 ml FLUSH ASDIRECTED PRN Sodium Chloride 0.9% [Saline Flush] 2.5 ml FLUSH ASDIRECTED PRN Saline Lock Insert [OM.PC] Stat - Assessment/Plan Last 24 Hours: My Active Orders 05/07/20 03:06 EKG Documentation Completion [RC] AM Sodium Chloride 0.9% [Saline Flush] 10 ml FLUSH ASDIRECTED PRN Sodium Chloride 0.9% [Saline Flush] 2.5 ml FLUSH ASDIRECTED PRN Saline Lock Insert [OM.PC] Stat
== END 2020-05-07 06:59 | disposition home or self-care (01) ==
LOC: MW.ED 02:35
DX: R10.84 Generalized abdominal pain (principal); E86.0 Dehydration; R11.2 Nausea with vomiting, unspecified; D72.829 Elevated white blood cell count, unspecified; I10 Essential (primary) hypertension; R74.02 Elevation of levels of lactic acid dehydrogenase [LDH]; F17.210 Nicotine dependence, cigarettes, uncomplicated; Z88.1 Allergy status to other antibiotic agents
CPT/HCPCS: 36415; 74176; 74177; 80053; 80307; 81001; 83605; 83690; 84484; 85025; 87635; 93005; 96374; 96375; 99284; A9270; C9113; J2270; J2405; J7030; Q9967; 93010; 99283; U0002

== ENCOUNTER 2020-05-09 22:46 | Observation (INO) | payer OTHER ==
[2020-05-09] MEDS ORDERED: Sodium Chloride 0.9% 1,000 ML IV ONE (23:02)
[2020-05-09] MEDS ORDERED: Ondansetron 4 MG/2 ML SDV IVPUSH ONE (23:02)
[2020-05-09] MEDS ORDERED: Alum Hydrox/Mag Hydrox/Simeth 15 ML, Lidocaine 2% 5 ML PO ONE ×2 (23:08)
--- NOTE | 2020-05-09 23:08 | EDM.PDOC ---
ED HPI GENERAL MEDICAL PROBLEM - General Chief Complaint: Abdominal Pain Stated Complaint: ABDOMINAL PAIN/VOMITING Time Seen by Provider: 05/09/20 23:03 Source of Information: Reports: Patient History Limitations: Reports: No Limitations - History of Present Illness INITIAL COMMENTS - FREE TEXT/NARRATIVE: Patient is a 50-year-old male who presents today for epigastric pain. Patient states that the pain mostly starts after he has any types of fruit and he recently has some plums. Patient states he has had nausea vomiting and increased in pain he cannot tolerate anything by mouth. Patient denies any chest pain shortness of breath fevers or chills. Patient also denies any heavy alcohol use but states he occasionally has a beer. abdominal Pain Score (Numeric/FACES): 7 - Related Data Allergies Allergy/AdvReac Type Severity Reaction Status Date / Time doxycycline Allergy Rash Verified 05/09/20 22:51 Home Meds: Home Meds Dicyclomine [Bentyl] 20 mg PO TID PRN #12 tab 05/07/20 [Rx] Ondansetron [Zofran ODT] 4 mg PO Q6H PRN #12 tab.dis 05/07/20 [Rx] Past Medical History HEENT History: Reports: None Cardiovascular History: Reports: Hypertension Respiratory History: Reports: None Gastrointestinal History: Reports: Pancreatitis, Other (See Below) Other Gastrointestinal History: Intestinal Obstruction Genitourinary History: Reports: None Musculoskeletal History: Reports: None Neurological History: Reports: None Psychiatric History: Reports: None Endocrine/Metabolic History: Reports: None Insulin Pump Model and Regulatory Affairs Manager: None Hematologic History: Reports: None Immunologic History: Reports: None Oncologic (Cancer) History: Reports: None Dermatologic History: Reports: None - Infectious Disease History Infectious Disease History: Reports: Chicken Pox, Shingles - Past Surgical History Head Surgeries/Procedures: Reports: None Other Cardiovascular Surgeries/Procedures: states not taking any meds Musculoskeletal Surgical History: Reports: Other (See Below) Other Musculoskeletal Surgeries/Procedures:: Back Surgery Social & Family History - Family History Family Medical History: No Pertinent Family History - Caffeine Use Caffeine Use: Reports: Energy Drinks - Recreational Drug Use Recreational Drug Use: No ED ROS GENERAL - Review of Systems Review Of Systems: See Below Constitutional: Reports: No Symptoms HEENT: Reports: No Symptoms Respiratory: Reports: No Symptoms Cardiovascular: Reports: No Symptoms Endocrine: Reports: No Symptoms GI/Abdominal: Reports: Abdominal Pain, Nausea, Vomiting : Reports: No Symptoms Musculoskeletal: Reports: No Symptoms Skin: Reports: No Symptoms Neurological: Reports: No Symptoms Psychiatric: Reports: No Symptoms Hematologic/Lymphatic: Reports: No Symptoms Immunologic: Reports: No Symptoms ED EXAM, GENERAL - Physical Exam Exam: See Below Exam Limited By: No Limitations General Appearance: Alert, No Apparent Distress Eye Exam: Bilateral Eye: EOMI, PERRL Respiratory/Chest: No Respiratory Distress, Lungs Clear Cardiovascular: Normal Peripheral Pulses, Regular Rate, Rhythm GI/Abdominal: Normal Bowel Sounds, Soft, Tender (epigastric) Extremities: Normal Inspection, Normal Range of Motion Neurological: Alert, Oriented, CN II-XII Intact, Normal Cognition, Normal Gait #1 Interpretation EKG Date: 05/09/20 Time: 23:10 Rhythm: NSR Rate (Beats/Min): 81 ST-T: Normal Course - Vital Signs Last Recorded V/S: Last Vital Signs Temp 98.3 F 05/09/20 22:52 Pulse 87 05/10/20 02:47 Resp 18 05/10/20 02:47 BP 172/115 H 05/10/20 02:47 Pulse Ox 98 05/10/20 02:47 - Orders/Labs/Meds Orders: Active Orders 24 hr Category Date Time Status Patient Status [ADT] Routine ADT 05/10/20 03:08 Ordered EKG Documentation Completion [RC] STAT Care 05/09/20 23:02 Active Labs: Laboratory Tests 05/09/20 05/09/20 05/10/20 Range/Units 22:50 22:50 01:56 WBC 9.50 (4.0-11.0) K/uL RBC 5.47 (4.50-5.90) M/uL Hgb 16.8 (13.0-17.0) g/dL Hct 49.8 (38.0-50.0) % MCV 91.0 (80.0-98.0) fL MCH 30.7 (27.0-32.0) pg MCHC 33.7 (31.0-37.0) g/dL RDW Std Deviation 41.6 (28.0-62.0) fl RDW Coeff of Daniel 12 (11.0-15.0) % Plt Count 272 (150-400) K/uL MPV 9.30 (7.40-12.00) fL Neut % (Auto) 62.0 (48.0-80.0) % Lymph % (Auto) 22.3 (16.0-40.0) % Robeson % (Auto) 13.2 (0.0-15.0) % Eos % (Auto) 2.4 (0.0-7.0) % Baso % (Auto) 0.1 (0.0-1.5) % Neut # (Auto) 5.9 H (1.4-5.7) K/uL Lymph # (Auto) 2.1 (0.6-2.4) K/uL Robeson # (Auto) 1.3 H (0.0-0.8) K/uL Eos # (Auto) 0.2 (0.0-0.7) K/uL Baso # (Auto) 0.0 (0.0-0.1) K/uL Sodium 129 L (136-148) mmol/L Potassium 3.3 L (3.5-5.1) mmol/L Chloride 95 L (98-107) mmol/L Carbon Dioxide 25.6 (21.0-32.0) mmol/L BUN 13 (7.0-18.0) mg/dL Creatinine 1.0 (0.8-1.3) mg/dL Est Cr Clr Drug Dosing TNP Estimated GFR (MDRD) > 60.0 ml/min Glucose 127 H (74-106) mg/dL Calcium 9.4 (8.5-10.1) mg/dL Total Bilirubin 0.4 (0.2-1.0) mg/dL AST 13 L (15-37) IU/L ALT 37 (14-63) IU/L Alkaline Phosphatase 84 (46-116) U/L Creatine Kinase 40 (26-308) U/L Troponin I < 0.050 (0.000-0.056) ng/mL Total Protein 7.2 (6.4-8.2) g/dL Albumin 3.7 (3.4-5.0) g/dL Globulin 3.5 (2.6-4.0) g/dL Albumin/Globulin Ratio 1.1 (0.9-1.6) Lipase 44 L (73-393) U/L SARS-CoV-2 RNA (BEATRICE) NEGATIVE (NEGATIVE) Meds: Medications Discontinued Medications Generic Name Dose Route Start Last Admin Trade Name Jas PRN Reason Stop Dose Admin Al Hydroxide/Mg Hydroxide 15 0 ml 05/09/20 23:08 05/09/20 23:16 ml/ Lidocaine HCl 5 ml PO 05/09/20 23:09 1 each ONETIME ONE Administration Sodium Chloride 1,000 mls @ 999 mls/hr 05/09/20 23:02 05/09/20 23:16 Normal Saline IV 05/10/20 00:02 999 mls/hr .BOLUS ONE Administration Iopamidol 100 ml 05/10/20 01:07 05/10/20 01:08 Isovue Multipack-370 (76%) IVPUSH 05/10/20 01:08 100 ml ONETIME STA Administration Morphine Sulfate 4 mg 05/09/20 23:43 05/09/20 23:51 Morphine IVPUSH 05/09/20 23:44 4 mg ONETIME ONE Administration Morphine Sulfate 4 mg 05/10/20 01:38 05/10/20 01:45 Morphine IVPUSH 05/10/20 01:39 4 mg ONETIME ONE Administration Ondansetron HCl 4 mg 05/09/20 23:02 05/09/20 23:16 Zofran IVPUSH 05/09/20 23:03 4 mg ONETIME ONE Administration - Re-Assessments/Exams Free Text/Narrative Re-Assessment/Exam: 05/10/20 03:09 Patient continues to have abdominal pain. Patient given morphine. Patient CAT scan shows a possible ileus. Patient Covid negative will be admitted for observation. Departure - Departure Time of Disposition: 03:09 Disposition: Admitted As Inpatient 65 Condition: Good Clinical Impression: Ileus - Discharge Information Referrals: Tim Lion MD [Primary Care Provider] - Forms: ED Department Discharge Sepsis Event Note (ED) - Evaluation Sepsis Screening Result: No Definite Risk - Focused Exam Vital Signs: Vital Signs Temp Pulse Resp BP Pulse Ox 05/10/20 02:47 87 18 172/115 H 98 05/10/20 02:08 79 18 149/83 H 94 L 05/10/20 01:49 79 20 185/111 H 96 05/10/20 01:24 70 22 H 187/109 H 95 05/10/20 00:36 72 141/91 H 98 05/09/20 22:52 98.3 F 83 18 152/99 H 96 - My Orders Last 24 Hours: My Active Orders 05/09/20 23:02 EKG Documentation Completion [RC] STAT 05/10/20 03:08 Patient Status [ADT] Routine - Assessment/Plan Last 24 Hours: My Active Orders 05/09/20 23:02 EKG Documentation Completion [RC] STAT 05/10/20 03:08 Patient Status [ADT] Routine Plan: She is a 50-year-old male who presents today for epigastric pain with nausea vomiting. Will obtain labs give antiemetics and reassess.
[2020-05-09 23:34] LABS: BLOOD UREA NITROGEN,BUN 13 mg/dL (7.0-18.0); CARBON DIOXIDE,CO2 25.6 mmol/L (21.0-32.0); CHLORIDE,CL 95 mmol/L (98-107); GLUCOSE RANDOM 127 mg/dL (74-106); LIPASE 44 U/L (73-393); POTASSIUM,K 3.3 mmol/L (3.5-5.1); SODIUM,NA 129 mmol/L (136-148)
[2020-05-09] MEDS ORDERED: Morphine 4 MG/ML Syringe IVPUSH ONE (23:43)
[2020-05-10] MEDS ORDERED: Iopamidol 755 MG/ML 500 ML Multipack Bottle IVPUSH STA (01:07)
[2020-05-10] MEDS ORDERED: Morphine 4 MG/ML Syringe IVPUSH ONE (01:38)
--- NOTE | 2020-05-10 01:40 | CT ---
INDICATION: Epigastric pain COMPARISON: 05/07/2020 TECHNIQUE: CT examination of the abdomen and pelvis was performed with the uneventful intravenous administration of 100 cc of Omnipaque 350 while 3 mm thick axial sections were obtained from the lung bases through the pubic symphysis. Oral contrast was not administered. Please note that all CT scans at this facility use dose modulation, iterative reconstruction, and/or weight-based dosing when appropriate to reduce radiation dose to as low as reasonably achievable. FINDINGS: Compared to the recent CT, there is increased moderate distention of multiple loops of proximal small bowel in the abdomen and upper pelvis, without a distinct point of transition. The small bowel and gradually tapers to normal caliber in the left lateral mid abdomen. The findings suggest an early small-bowel ileus. The stomach is again seen to be moderately distended with fluid and gas. In the abdomen, the liver, spleen, pancreas, and adrenals are normal in appearance. The kidneys are normal in appearance. The gallbladder is normal in appearance. The abdominal aorta is normal in caliber with no sign of dilatation. There is no sign of retroperitoneal mass or adenopathy. The right colon in the abdomen is normal in appearance. Again seen is mild diverticulosis of the descending colon with no sign of diverticulitis. Again seen is a small fat containing periumbilical hernia. In the pelvis, the appendix is nonvisualized, but there is no sign of an inflammatory process in the area of the appendix. The distal loops of small bowel and colon in the pelvis are normal in appearance. The prostate remains mildly enlarged and is otherwise normal in appearance. The urinary bladder is normal in appearance. There is no sign of pelvic or inguinal mass or adenopathy. There is no sign of free air or free fluid in the abdomen or pelvis. The lung bases are clear. Again seen are changes of fusion at L5-S1 with anatomic alignment of the fused segments and absence of the disc space indicating solid osseous union. Bilateral L5 and S1 intrapedicular screws are again seen with vertical connecting rods. Again seen is mild primary osteoarthritis of the right hip. The left hip is unremarkable. IMPRESSION: Compared to the recent CT, there is increased moderate dilatation of the proximal small bowel with continued moderate dilatation of the stomach. No distinct point of transition is seen, with gradual decrease in small bowel caliber to normal in the left mid abdomen. This could represent an early small-bowel ileus. CT of the abdomen shows mild diverticulosis of the descending colon with no sign of diverticulitis. CT of the pelvis shows stable mild enlargement of the prostate. Please note that all CT scans at this facility use dose modulation, iterative reconstruction, and/or weight-based dosing when appropriate to reduce radiation dose to as low as reasonably achievable. Dictated by Sohan Jauregui MD @ May 10 2020 1:25AM Signed by Dr. Sohan Jauregui @ May 10 2020 1:38AM
[2020-05-10] MEDS ORDERED: Morphine 2 MG/ML SYRINGE IVPUSH PRN (04:38)
[2020-05-10] MEDS ORDERED: Ondansetron 4 MG/2 ML SDV IVPUSH PRN (04:38)
[2020-05-10] MEDS ORDERED: Potassium Chloride Riders 40 MEQ in Premix Bag 1 BAG IV ONE (04:40)
[2020-05-10] MEDS ORDERED: Lactated Ringers 1,000 ML IV SCH (04:45)
[2020-05-10] MEDS ORDERED: Pantoprazole 40 MG in Sodium Chloride 0.9% 10 ML IV SCH (04:45)
[2020-05-10] MEDS ORDERED: Labetalol 100 MG/20 ML MDV IVPUSH SCH (04:45)
[2020-05-10] MEDS ORDERED: Enoxaparin 40 MG/0.4 ML Syringe SUBCUT SCH (05:00)
[2020-05-10] MEDS ORDERED: Labetalol 100 MG/20 ML MDV IVPUSH PRN (05:37)
--- NOTE | 2020-05-10 07:35 | PCM.HP.2 ---
H&P History of Present Illness - General Date of Service: 05/10/20 Admit Problem/Dx: Admission Diagnosis/Problem Admission Diagnosis/Problem Ileus abdominal Pain Score (Numeric/FACES): 5 - Related Data Allergies/Adverse Reactions: Allergies Allergy/AdvReac Type Severity Reaction Status Date / Time doxycycline Allergy Rash Verified 05/10/20 05:07 Home Medications: Home Meds Dicyclomine [Bentyl] 20 mg PO TID PRN #12 tab 05/07/20 [Rx] Ondansetron [Zofran ODT] 4 mg PO Q6H PRN #12 tab.dis 05/07/20 [Rx] Past Medical History HEENT History: Reports: None Cardiovascular History: Reports: Hypertension Respiratory History: Reports: None Gastrointestinal History: Reports: Pancreatitis, Other (See Below) Other Gastrointestinal History: Intestinal Obstruction Genitourinary History: Reports: None Musculoskeletal History: Reports: None Neurological History: Reports: None Psychiatric History: Reports: None Endocrine/Metabolic History: Reports: None Insulin Pump Model and Nuclear Worker Technician: None Hematologic History: Reports: None Immunologic History: Reports: None Oncologic (Cancer) History: Reports: None Dermatologic History: Reports: None - Infectious Disease History Infectious Disease History: Reports: Chicken Pox, Shingles - Past Surgical History Head Surgeries/Procedures: Reports: None Other Cardiovascular Surgeries/Procedures: states not taking any meds Musculoskeletal Surgical History: Reports: Other (See Below) Other Musculoskeletal Surgeries/Procedures:: Back Surgery Social & Family History - Family History Family Medical History: No Pertinent Family History - Caffeine Use Caffeine Use: Reports: Energy Drinks - Recreational Drug Use Recreational Drug Use: No Exam - Vital Signs Vital Signs: Last Vital Signs Temp 98 F 05/10/20 04:09 Pulse 72 05/10/20 04:09 Resp 20 05/10/20 04:09 BP 162/64 H 05/10/20 04:37 Pulse Ox 96 05/10/20 04:09 Weight: 193 lb 7 oz - Patient Data Lab Results Last 24 hrs: Laboratory Results - last 24 hr 05/09/20 05/09/20 05/09/20 Range/Units 03:50 22:50 22:50 WBC 9.50 (4.0-11.0) K/uL RBC 5.47 (4.50-5.90) M/uL Hgb 16.8 (13.0-17.0) g/dL Hct 49.8 (38.0-50.0) % MCV 91.0 (80.0-98.0) fL MCH 30.7 (27.0-32.0) pg MCHC 33.7 (31.0-37.0) g/dL RDW Std Deviation 41.6 (28.0-62.0) fl RDW Coeff of Daniel 12 (11.0-15.0) % Plt Count 272 (150-400) K/uL MPV 9.30 (7.40-12.00) fL Neut % (Auto) 62.0 (48.0-80.0) % Lymph % (Auto) 22.3 (16.0-40.0) % Whitley % (Auto) 13.2 (0.0-15.0) % Eos % (Auto) 2.4 (0.0-7.0) % Baso % (Auto) 0.1 (0.0-1.5) % Neut # (Auto) 5.9 H (1.4-5.7) K/uL Lymph # (Auto) 2.1 (0.6-2.4) K/uL Whitley # (Auto) 1.3 H (0.0-0.8) K/uL Eos # (Auto) 0.2 (0.0-0.7) K/uL Baso # (Auto) 0.0 (0.0-0.1) K/uL Sodium 129 L (136-148) mmol/L Potassium 3.3 L (3.5-5.1) mmol/L Chloride 95 L (98-107) mmol/L Carbon Dioxide 25.6 (21.0-32.0) mmol/L BUN 13 (7.0-18.0) mg/dL Creatinine 1.0 (0.8-1.3) mg/dL Est Cr Clr Drug Dosing TNP Estimated GFR (MDRD) > 60.0 ml/min Glucose 127 H (74-106) mg/dL Calcium 9.4 (8.5-10.1) mg/dL Magnesium 2.0 (1.8-2.4) mg/dL Total Bilirubin 0.4 (0.2-1.0) mg/dL AST 13 L (15-37) IU/L ALT 37 (14-63) IU/L Alkaline Phosphatase 84 (46-116) U/L Creatine Kinase 40 (26-308) U/L Troponin I < 0.050 (0.000-0.056) ng/mL Total Protein 7.2 (6.4-8.2) g/dL Albumin 3.7 (3.4-5.0) g/dL Globulin 3.5 (2.6-4.0) g/dL Albumin/Globulin Ratio 1.1 (0.9-1.6) Lipase 44 L (73-393) U/L SARS-CoV-2 RNA (BEATRICE) (NEGATIVE) 05/10/20 Range/Units 01:56 WBC (4.0-11.0) K/uL RBC (4.50-5.90) M/uL Hgb (13.0-17.0) g/dL Hct (38.0-50.0) % MCV (80.0-98.0) fL MCH (27.0-32.0) pg MCHC (31.0-37.0) g/dL RDW Std Deviation (28.0-62.0) fl RDW Coeff of Daniel (11.0-15.0) % Plt Count (150-400) K/uL MPV (7.40-12.00) fL Neut % (Auto) (48.0-80.0) % Lymph % (Auto) (16.0-40.0) % Whitley % (Auto) (0.0-15.0) % Eos % (Auto) (0.0-7.0) % Baso % (Auto) (0.0-1.5) % Neut # (Auto) (1.4-5.7) K/uL Lymph # (Auto) (0.6-2.4) K/uL Whitley # (Auto) (0.0-0.8) K/uL Eos # (Auto) (0.0-0.7) K/uL Baso # (Auto) (0.0-0.1) K/uL Sodium (136-148) mmol/L Potassium (3.5-5.1) mmol/L Chloride (98-107) mmol/L Carbon Dioxide (21.0-32.0) mmol/L BUN (7.0-18.0) mg/dL Creatinine (0.8-1.3) mg/dL Est Cr Clr Drug Dosing Estimated GFR (MDRD) ml/min Glucose (74-106) mg/dL Calcium (8.5-10.1) mg/dL Magnesium (1.8-2.4) mg/dL Total Bilirubin (0.2-1.0) mg/dL AST (15-37) IU/L ALT (14-63) IU/L Alkaline Phosphatase (46-116) U/L Creatine Kinase (26-308) U/L Troponin I (0.000-0.056) ng/mL Total Protein (6.4-8.2) g/dL Albumin (3.4-5.0) g/dL Globulin (2.6-4.0) g/dL Albumin/Globulin Ratio (0.9-1.6) Lipase (73-393) U/L SARS-CoV-2 RNA (BEATRICE) NEGATIVE (NEGATIVE) Result Diagrams: 05/09/20 22:50 05/09/20 22:50 Sepsis Event Note - Evaluation Sepsis Screening Result: No Definite Risk - Focused Exam Vital Signs: Vital Signs Temp Pulse Resp BP Pulse Ox 05/10/20 04:37 162/64 H 05/10/20 04:09 98 F 72 20 183/104 H 96 05/10/20 04:00 98.1 F 84 20 168/100 H 98 05/10/20 03:39 75 18 161/106 H 97 05/10/20 03:17 96 18 144/95 H 96 05/10/20 02:47 87 18 172/115 H 98 05/10/20 02:08 79 18 149/83 H 94 L 05/10/20 01:49 79 20 185/111 H 96 05/10/20 01:24 70 22 H 187/109 H 95 05/10/20 00:36 72 141/91 H 98 05/09/20 22:52 98.3 F 83 18 152/99 H 96 Orders Last 24hrs: Active Orders 24 hr Category Date Time Status Patient Status [ADT] Routine ADT 05/10/20 03:08 Active Antiembolic Devices [RC] PER UNIT ROUTINE Care 05/10/20 04:37 Active Oxygen Therapy [RC] ASDIRECTED Care 05/10/20 04:41 Active Telemetry Monitoring [Cardiac Monitoring] [RC] Q8H Care 05/10/20 04:00 Active Vital Signs [RC] Q4H Care 05/10/20 04:37 Active NPO Now [Nothing per Oral Now Diet] [DIET] Diet 05/10/20 Breakfast Active Enoxaparin [Lovenox] Med 05/10/20 05:00 Active 40 mg SUBCUT Q24H Labetalol [Normodyne] Med 05/10/20 05:37 Active 20 mg IVPUSH Q4H PRN Lactated Ringers [Ringers, Lactated] 1,000 ml Med 05/10/20 04:45 Active IV ASDIRECTED Morphine Med 05/10/20 04:38 Active 1 mg IVPUSH Q4H PRN Ondansetron [Zofran] Med 05/10/20 04:38 Active 4 mg IVPUSH Q4H PRN Pantoprazole [ProTONIX IV] 40 mg Med 05/10/20 04:45 Active Sodium Chloride 0.9% [Normal Saline] 10 ml IV Q24H Potassium Chloride Riders [KCL 40 MEQ in Water 100 ML] Med 05/10/20 04:40 Active 40 meq Premix Bag 1 bag IV ONETIME SCD [Sequential Compression Device] [OM.PC] Routine Oth 05/10/20 04:37 Ordered Medication Orders Enoxaparin Sodium (Lovenox) 40 mg SUBCUT Q24H [facility] Last Admin: 05/10/20 05:35 Dose: 40 mg Documented by: CELE Lactated Ringer's (Ringers, Lactated) 1,000 mls @ 100 mls/hr IV ASDIRECTED [facility] Last Admin: 05/10/20 05:36 Dose: 100 mls/hr Documented by: CELE Pantoprazole Sodium 40 mg/ (Sodium Chloride) 10 mls @ 300 mls/hr IV Q24H [facility] Last Admin: 05/10/20 05:35 Dose: 300 mls/hr Documented by: CELE Potassium Chloride 40 meq/ (Premix) 100 mls @ 25 mls/hr IV ONETIME ONE Stop: 05/10/20 08:39 Last Admin: 05/10/20 05:42 Dose: 25 mls/hr Documented by: CELE Labetalol HCl (Normodyne) 20 mg IVPUSH Q4H PRN; Protocol PRN Reason: Hypertension Morphine Sulfate (Morphine) 1 mg IVPUSH Q4H PRN PRN Reason: Pain Last Admin: 05/10/20 05:39 Dose: 1 mg Documented by: CELE Ondansetron HCl (Zofran) 4 mg IVPUSH Q4H PRN PRN Reason: Nausea/Vomiting
[2020-05-10] MEDS ORDERED: Potassium Chloride 20 MEQ Tab.ER PO ONE (08:30)
[2020-05-10] MEDS ORDERED: Polyethylene Glycol 3350 Powder 17 GM Packet PO ONE (09:15)
[2020-05-10] MEDS ORDERED: Docusate Sodium 100 MG Cap PO SCH (10:30)
--- NOTE | 2020-05-10 14:51 | PCM.DCSUM1 ---
<Tobi Parkinson - Last Filed: 05/10/20 14:54> Discharge Summary - Hospital Course Free Text/Narrative:: Patient is a 50-year-old male admitted for ileus, diverticulosis confirmed via CT abdomen. Patient presented to the ED with complaints of nausea, vomiting, abdominal pain. Secondary to possible few food ingestion. Patient states that he had episodes like this in the past after eating certain foods but cannot recall which ones. Patient is a past medical history including pancreatitis, hypertension, and intestinal obstruction. On admission patient states that he feels good denies fever denies chills denies vomiting denies nausea denies diarrhea. States constipation, has not had a bowel movement the past 3 to 4 days. Patient denies heavy alcohol usage, states he drinks alcohol socially, 1 beer at the most. On admission white blood cell count 9.5, potassium 3.3, AST 13, lipase 44, CT abdomen impression shows possible early small bowel ileus as well as mild diverticulosis of the descending colon with no signs of diverticulitis. Patient treated with IV fluids, potassium replaced, Zofran, morphine and NPO with diet advanced to clear liquid as tolerated. Patient was able to tolerate clear liquids in the afternoon, and denied any abdominal pain. During the afternoon patient appeared to become extremely agitated with nursing staff and kept reiterating that he would like to leave. Patient reported that he felt much better and needed to go home due to work and family problems. He stated that he would be able to manage his abdominal pain and his constipation at home. Patient was advised to stay one more night in the hospital for observation but was insistent on leaving. Patient left AMA, documentation signed. - Discharge Data Discharge Date: 05/10/20 Discharge Disposition: Against Medical Advice 07 Condition: Stable - Referral to Home Health Primary Care Physician: Tim Lion MD - Discharge Plan Home Medications: Home Meds Dicyclomine [Bentyl] 20 mg PO TID PRN #12 tab 05/07/20 [Rx] Ondansetron [Zofran ODT] 4 mg PO Q6H PRN #12 tab.dis 05/07/20 [Rx] Forms: ED Department Discharge Referrals: Tim Lion MD [Primary Care Provider] - 05/17/20 8:00 am - Discharge Summary/Plan Comment DC Time >30 min.: Yes Discharge Summary/Plan Comment: Patient left AMA - General Info Subjective Update: Patient states that he feels fine, denies any abdominal pain, fever, chills, nausea, vomiting. Patient states that he has not a bowel movement 3 to 4 days. Patient states that he would like to go home as he has work and family obli gations which he has not tended to. Patient explained that he should be hospitalized for one more night for observation. Patient understands but would still like to leave AMA. Documentation signed. - Patient Data Vitals - Most Recent: Last Vital Signs Temp 97.1 F 05/10/20 11:00 Pulse 58 L 05/10/20 11:00 Resp 16 05/10/20 11:00 BP 156/89 H 05/10/20 11:00 Pulse Ox 97 05/10/20 11:00 Weight - Most Recent: 87.742 kg I&O - Last 24 hours: Intake & Output 05/09/20 05/10/20 05/10/20 22:59 06:59 14:59 Intake Total 360 Balance 360 Lab Results - Last 24 hrs: Laboratory Results - last 24 hr 05/09/20 05/09/20 05/09/20 Range/Units 03:50 22:50 22:50 WBC 9.50 (4.0-11.0) K/uL RBC 5.47 (4.50-5.90) M/uL Hgb 16.8 (13.0-17.0) g/dL Hct 49.8 (38.0-50.0) % MCV 91.0 (80.0-98.0) fL MCH 30.7 (27.0-32.0) pg MCHC 33.7 (31.0-37.0) g/dL RDW Std Deviation 41.6 (28.0-62.0) fl RDW Coeff of Daniel 12 (11.0-15.0) % Plt Count 272 (150-400) K/uL MPV 9.30 (7.40-12.00) fL Neut % (Auto) 62.0 (48.0-80.0) % Lymph % (Auto) 22.3 (16.0-40.0) % Rabun % (Auto) 13.2 (0.0-15.0) % Eos % (Auto) 2.4 (0.0-7.0) % Baso % (Auto) 0.1 (0.0-1.5) % Neut # (Auto) 5.9 H (1.4-5.7) K/uL Lymph # (Auto) 2.1 (0.6-2.4) K/uL Rabun # (Auto) 1.3 H (0.0-0.8) K/uL Eos # (Auto) 0.2 (0.0-0.7) K/uL Baso # (Auto) 0.0 (0.0-0.1) K/uL Sodium 129 L (136-148) mmol/L Potassium 3.3 L (3.5-5.1) mmol/L Chloride 95 L (98-107) mmol/L Carbon Dioxide 25.6 (21.0-32.0) mmol/L BUN 13 (7.0-18.0) mg/dL Creatinine 1.0 (0.8-1.3) mg/dL Est Cr Clr Drug Dosing TNP Estimated GFR (MDRD) > 60.0 ml/min Glucose 127 H (74-106) mg/dL Calcium 9.4 (8.5-10.1) mg/dL Magnesium 2.0 (1.8-2.4) mg/dL Total Bilirubin 0.4 (0.2-1.0) mg/dL AST 13 L (15-37) IU/L ALT 37 (14-63) IU/L Alkaline Phosphatase 84 (46-116) U/L Creatine Kinase 40 (26-308) U/L Troponin I < 0.050 (0.000-0.056) ng/mL Total Protein 7.2 (6.4-8.2) g/dL Albumin 3.7 (3.4-5.0) g/dL Globulin 3.5 (2.6-4.0) g/dL Albumin/Globulin Ratio 1.1 (0.9-1.6) Lipase 44 L (73-393) U/L SARS-CoV-2 RNA (BEATRICE) (NEGATIVE) 05/10/20 Range/Units 01:56 WBC (4.0-11.0) K/uL RBC (4.50-5.90) M/uL Hgb (13.0-17.0) g/dL Hct (38.0-50.0) % MCV (80.0-98.0) fL MCH (27.0-32.0) pg MCHC (31.0-37.0) g/dL RDW Std Deviation (28.0-62.0) fl RDW Coeff of Daniel (11.0-15.0) % Plt Count (150-400) K/uL MPV (7.40-12.00) fL Neut % (Auto) (48.0-80.0) % Lymph % (Auto) (16.0-40.0) % Rabun % (Auto) (0.0-15.0) % Eos % (Auto) (0.0-7.0) % Baso % (Auto) (0.0-1.5) % Neut # (Auto) (1.4-5.7) K/uL Lymph # (Auto) (0.6-2.4) K/uL Rabun # (Auto) (0.0-0.8) K/uL Eos # (Auto) (0.0-0.7) K/uL Baso # (Auto) (0.0-0.1) K/uL Sodium (136-148) mmol/L Potassium (3.5-5.1) mmol/L Chloride (98-107) mmol/L Carbon Dioxide (21.0-32.0) mmol/L BUN (7.0-18.0) mg/dL Creatinine (0.8-1.3) mg/dL Est Cr Clr Drug Dosing Estimated GFR (MDRD) ml/min Glucose (74-106) mg/dL Calcium (8.5-10.1) mg/dL Magnesium (1.8-2.4) mg/dL Total Bilirubin (0.2-1.0) mg/dL AST (15-37) IU/L ALT (14-63) IU/L Alkaline Phosphatase (46-116) U/L Creatine Kinase (26-308) U/L Troponin I (0.000-0.056) ng/mL Total Protein (6.4-8.2) g/dL Albumin (3.4-5.0) g/dL Globulin (2.6-4.0) g/dL Albumin/Globulin Ratio (0.9-1.6) Lipase (73-393) U/L SARS-CoV-2 RNA (BEATRICE) NEGATIVE (NEGATIVE) Med Orders - Current: Current Medications Docusate Sodium (Colace) 100 mg PO BID [facility] Last Admin: 05/10/20 10:53 Dose: 100 mg Documented by: Enoxaparin Sodium (Lovenox) 40 mg SUBCUT Q24H [facility] Last Admin: 05/10/20 05:35 Dose: 40 mg Documented by: Pantoprazole Sodium 40 mg/ (Sodium Chloride) 10 mls @ 300 mls/hr IV Q24H [facility] Last Admin: 05/10/20 05:35 Dose: 300 mls/hr Documented by: Labetalol HCl (Normodyne) 20 mg IVPUSH Q4H PRN; Protocol PRN Reason: Hypertension Morphine Sulfate (Morphine) 1 mg IVPUSH Q4H PRN PRN Reason: Pain Last Admin: 05/10/20 05:39 Dose: 1 mg Documented by: Ondansetron HCl (Zofran) 4 mg IVPUSH Q4H PRN PRN Reason: Nausea/Vomiting Discontinued Medications Al Hydroxide/Mg Hydroxide 15 (ml/ Lidocaine HCl 5 ml) 0 ml PO ONETIME ONE Stop: 05/09/20 23:09 Last Admin: 05/09/20 23:16 Dose: 1 each Documented by: Sodium Chloride (Normal Saline) 1,000 mls @ 999 mls/hr IV .BOLUS ONE Stop: 05/10/20 00:02 Last Admin: 05/09/20 23:16 Dose: 999 mls/hr Documented by: Lactated Ringer's (Ringers, Lactated) 1,000 mls @ 100 mls/hr IV ASDIRECTED [facility] Last Admin: 05/10/20 05:36 Dose: 100 mls/hr Documented by: Potassium Chloride 40 meq/ (Premix) 100 mls @ 25 mls/hr IV ONETIME ONE Stop: 05/10/20 08:39 Last Admin: 05/10/20 05:42 Dose: 25 mls/hr Documented by: Iopamidol (Isovue Multipack-370 (76%)) 100 ml IVPUSH ONETIME STA Stop: 05/10/20 01:08 Last Admin: 05/10/20 01:08 Dose: 100 ml Documented by: Labetalol HCl (Normodyne) 20 mg IVPUSH Q4H [facility]; Protocol Last Admin: 05/10/20 05:38 Dose: Not Given Documented by: Morphine Sulfate (Morphine) 4 mg IVPUSH ONETIME ONE Stop: 05/09/20 23:44 Last Admin: 05/09/20 23:51 Dose: 4 mg Documented by: Morphine Sulfate (Morphine) 4 mg IVPUSH ONETIME ONE Stop: 05/10/20 01:39 Last Admin: 05/10/20 01:45 Dose: 4 mg Documented by: Ondansetron HCl (Zofran) 4 mg IVPUSH ONETIME ONE Stop: 05/09/20 23:03 Last Admin: 05/09/20 23:16 Dose: 4 mg Documented by: Polyethylene Glycol (Miralax) 17 gm PO BID ONE Stop: 05/10/20 09:16 Polyethylene Glycol (Miralax) 17 gm PO DAILY [facility] Potassium Chloride (Klor-Con M20) 40 meq PO ONETIME ONE Stop: 05/10/20 08:31 Last Admin: 05/10/20 09:29 Dose: Not Given Documented by: <Rj Logan - Last Filed: 05/11/20 13:01> Discharge Summary - Hospital Course Free Text/Narrative:: I have seen and evaluated the patient and agree with the residents note unless specified in my note - Referral to Home Health Primary Care Physician: Tim Lion MD - Patient Data Vitals - Most Recent: Last Vital Signs Temp 36.2 C 05/10/20 11:00 Pulse 58 L 05/10/20 11:00 Resp 16 05/10/20 11:00 BP 156/89 H 05/10/20 11:00 Pulse Ox 97 05/10/20 11:00 Med Orders - Current: Current Medications Discontinued Medications Al Hydroxide/Mg Hydroxide 15 (ml/ Lidocaine HCl 5 ml) 0 ml PO ONETIME ONE Stop: 05/09/20 23:09 Last Admin: 05/09/20 23:16 Dose: 1 each Documented by: Docusate Sodium (Colace) 100 mg PO BID [facility] Last Admin: 05/10/20 10:53 Dose: 100 mg Documented by: Enoxaparin Sodium (Lovenox) 40 mg SUBCUT Q24H [facility] Last Admin: 05/10/20 05:35 Dose: 40 mg Documented by: Sodium Chloride (Normal Saline) 1,000 mls @ 999 mls/hr IV .BOLUS ONE Stop: 05/10/20 00:02 Last Admin: 05/09/20 23:16 Dose: 999 mls/hr Documented by: Lactated Ringer's (Ringers, Lactated) 1,000 mls @ 100 mls/hr IV ASDIRECTED [facility] Last Admin: 05/10/20 05:36 Dose: 100 mls/hr Documented by: Pantoprazole Sodium 40 mg/ (Sodium Chloride) 10 mls @ 300 mls/hr IV Q24H [facility] Last Admin: 05/10/20 05:35 Dose: 300 mls/hr Documented by: Potassium Chloride 40 meq/ (Premix) 100 mls @ 25 mls/hr IV ONETIME ONE Stop: 05/10/20 08:39 Last Admin: 05/10/20 05:42 Dose: 25 mls/hr Documented by: Iopamidol (Isovue Multipack-370 (76%)) 100 ml IVPUSH ONETIME STA Stop: 05/10/20 01:08 Last Admin: 05/10/20 01:08 Dose: 100 ml Documented by: Labetalol HCl (Normodyne) 20 mg IVPUSH Q4H [facility]; Protocol Last Admin: 05/10/20 05:38 Dose: Not Given Documented by: Labetalol HCl (Normodyne) 20 mg IVPUSH Q4H PRN; Protocol PRN Reason: Hypertension Morphine Sulfate (Morphine) 4 mg IVPUSH ONETIME ONE Stop: 05/09/20 23:44 Last Admin: 05/09/20 23:51 Dose: 4 mg Documented by: Morphine Sulfate (Morphine) 4 mg IVPUSH ONETIME ONE Stop: 05/10/20 01:39 Last Admin: 05/10/20 01:45 Dose: 4 mg Documented by: Morphine Sulfate (Morphine) 1 mg IVPUSH Q4H PRN PRN Reason: Pain Last Admin: 05/10/20 05:39 Dose: 1 mg Documented by: Ondansetron HCl (Zofran) 4 mg IVPUSH ONETIME ONE Stop: 05/09/20 23:03 Last Admin: 05/09/20 23:16 Dose: 4 mg Documented by: Ondansetron HCl (Zofran) 4 mg IVPUSH Q4H PRN PRN Reason: Nausea/Vomiting Polyethylene Glycol (Miralax) 17 gm PO BID ONE Stop: 05/10/20 09:16 Polyethylene Glycol (Miralax) 17 gm PO DAILY [facility] Potassium Chloride (Klor-Con M20) 40 meq PO ONETIME ONE Stop: 05/10/20 08:31 Last Admin: 05/10/20 09:29 Dose: Not Given Documented by:
[2020-05-11] MEDS ORDERED: Polyethylene Glycol 3350 Powder 17 GM Packet PO SCH (09:00)
== END 2020-05-10 14:45 | disposition left against medical advice (07) ==
LOC: MW.ED 22:46 → MW.MS 05-10 03:08
PROVIDERS: ADMIT Student in an Organized Health Care Education/Training Program; ATTEND Student in an Organized Health Care Education/Training Program
DX: K56.7 Ileus, unspecified (principal); K57.30 Diverticulosis of large intestine without perforation or abscess without bleeding; I10 Essential (primary) hypertension; K85.90 Acute pancreatitis without necrosis or infection, unspecified; K56.609 Unspecified intestinal obstruction, unspecified as to partial versus complete obstruction; Z20.828 Contact with and (suspected) exposure to other viral communicable diseases; Z79.899 Other long term (current) drug therapy; Z88.1 Allergy status to other antibiotic agents
CPT/HCPCS: 36415; 74177; 80053; 82550; 83690; 83735; 84484; 85025; 87635; 93005; A9270; C9113; J1650; J2270; J2405; J3480; J7030; J7120; Q9967; 96374; 96375; 96376; 99285-25; U0002

== ENCOUNTER 2021-10-23 06:00 | Inpatient (IN) | payer SELFPAY ==
[2021-10-23] MEDS ORDERED: Lactated Ringers 1,000 ML IV STA ×2 (06:17→08:16)
[2021-10-23] MEDS ORDERED: Ondansetron 4 MG/2 ML SDV IVPUSH ONE (06:17)
[2021-10-23] MEDS ORDERED: Morphine 4 MG/ML VIAL IVPUSH ONE ×2 (06:17→07:01)
[2021-10-23 06:59] LABS: BLOOD UREA NITROGEN,BUN 14 mg/dL (7.0-18.0); CARBON DIOXIDE,CO2 25.7 mmol/L (21.0-32.0); CHLORIDE,CL 104 mmol/L (98-107); GLUCOSE RANDOM 134 mg/dL (74-106); LIPASE 44 U/L (73-393); POTASSIUM,K 4.1 mmol/L (3.5-5.1); SODIUM,NA 141 mmol/L (136-148)
[2021-10-23] MEDS ORDERED: fentaNYL 50 MCG/ML SDV IVPUSH ONE (08:47)
[2021-10-23] MEDS ORDERED: Piperacillin/Tazobactam 3.375 GM in Sodium Chloride 0.9% 50 ML IV ONE (08:57)
[2021-10-23] MEDS ORDERED: Ondansetron 4 MG/2 ML SDV IVPUSH PRN (12:02)
[2021-10-23] MEDS: HYDROmorphone 2 MG/ML Syringe IVPUSH PRN ×2 (12:14→20:55)
[2021-10-23] MEDS ORDERED: Pantoprazole 40 MG in Sodium Chloride 0.9% 10 ML IVPUSH SCH (12:15)
[2021-10-23] MEDS: Lactated Ringers 1,000 ML IV SCH (16:04)
[2021-10-23] MEDS ORDERED: Phenol 1.4% Oral Spray 177 ML Bottle MUCMEM PRN (16:43)
[2021-10-23] MEDS: Piperacillin/Tazobactam 3.375 GM in Sodium Chloride 0.9% 50 ML IV SCH (17:11)
[2021-10-23] MEDS ORDERED: Iopamidol 755 MG/ML 500 ML Multipack Bottle IVPUSH ONE (18:44)
[2021-10-23] MEDS ORDERED: Pantoprazole 40 MG in Sodium Chloride 0.9% 10 ML IVPUSH ONE (20:46)
[2021-10-24] MEDS: Lactated Ringers 1,000 ML IV SCH ×3 (01:57→04:57)
[2021-10-24] MEDS: Piperacillin/Tazobactam 3.375 GM in Sodium Chloride 0.9% 50 ML IV SCH (01:58)
[2021-10-24] MEDS: HYDROmorphone 2 MG/ML Syringe IVPUSH PRN (03:19)
[2021-10-24 07:51] LABS: BLOOD UREA NITROGEN,BUN 15 mg/dL (7.0-18.0); CARBON DIOXIDE,CO2 29.9 mmol/L (21.0-32.0); CHLORIDE,CL 105 mmol/L (98-107); GLUCOSE RANDOM 110 mg/dL (74-106); POTASSIUM,K 3.6 mmol/L (3.5-5.1); SODIUM,NA 139 mmol/L (136-148)
[2021-10-24] MEDS ORDERED: Piperacillin/Tazobactam 3.375 GM in Sodium Chloride 0.9% 50 ML IV SCH (08:00)
== END 2021-10-24 07:45 | disposition left against medical advice (07) | DRG 392 ==
LOC: MW.ED 06:00 → MW.MS 09:57
PROVIDERS: ADMIT Student in an Organized Health Care Education/Training Program; ATTEND Student in an Organized Health Care Education/Training Program
PROC: 0D9670Z Drainage of Stomach with Drainage Device, Via Natural or Artificial Opening (ICD-10-PCS; principal; 2021-10-23)
DX: K52.9 Noninfective gastroenteritis and colitis, unspecified (principal); K56.609 Unspecified intestinal obstruction, unspecified as to partial versus complete obstruction; I10 Essential (primary) hypertension; M19.90 Unspecified osteoarthritis, unspecified site; G89.29 Other chronic pain; F41.9 Anxiety disorder, unspecified; F32.A Depression, unspecified; Z20.822 Contact with and (suspected) exposure to COVID-19; F17.200 Nicotine dependence, unspecified, uncomplicated; D72.829 Elevated white blood cell count, unspecified; M54.9 Dorsalgia, unspecified; K57.30 Diverticulosis of large intestine without perforation or abscess without bleeding; Z90.49 Acquired absence of other specified parts of digestive tract
CPT/HCPCS: 36415; 71045; 71045-26; 74177; 74177-26; 80053; 81001; 83605; 83690; 83735; 84100; 85025; 85610; 87040; 93005; 96361; 96374; 96375; 96376; 99285-25; A9270-GY; C9113; J1170; J2270; J2405; J2543; J3010; J3490; J7120; Q9967; U0002

== ENCOUNTER 2024-03-24 02:36 | Emergency (ER) | payer SELFPAY ==
[2024-03-24] MEDS ORDERED: Sodium Chloride 0.9% 2.5 ML Syringe FLUSH PRN (02:49)
[2024-03-24] MEDS ORDERED: Sodium Chloride 0.9% 10 ML Syringe FLUSH PRN (02:49)
[2024-03-24 03:01] LABS: BASOPHILS ABSOLUTE AUTO 0.06 K/uL (0.00-0.20); BASOPHILS PERCENT AUTO 0.7 % (0.0-1.0); EOSINOPHILS PERCENT AUTO 1.1 % (0.0-6.0); HEMATOCRIT 41.1 % (42.0-52.0); HEMOGLOBIN 13.5 g/dL (14.0-18.0); IMMATURE GRAN ABSOLUTE AUTO 0.07 K/uL (0.00-0.05); IMMATURE GRAN PERCENT AUTO 0.8 % (0.0-0.4); LYMPHOCYTES ABSOLUTE AUTO 2.94 K/uL (1.00-4.80); LYMPHOCYTES PERCENT AUTO 32.5 % (24.0-44.0); MEAN CORPUSCULAR HEMOGLOBIN 30.4 pg (28.0-32.0); MEAN CORPUSCULAR HGB CONC 32.8 g/dL (32.0-36.0); MEAN CORPUSCULAR VOLUME 92.6 fL (83.0-99.0); MEAN PLATELET VOLUME 8.4 fL (9.4-12.4); MONOCYTES PERCENT AUTO 7.7 % (0.0-8.0); NEUTROPHILS ABSOLUTE AUTO 5.17 K/uL (1.80-7.70); NEUTROPHILS PERCENT AUTO 57.2 % (41.0-71.0); PLATELET COUNT,PLT 390 K/uL (150-400); RED BLOOD CELL COUNT 4.44 M/uL (4.52-5.90); WHITE BLOOD CELL COUNT,WBC 9.04 K/uL (3.9-11.3)
[2024-03-24 03:26] LABS: ALBUMIN 3.5 g/dL (3.4-5.0); BILIRUBIN TOTAL 0.4 mg/dL (0.2-1.0); CARBON DIOXIDE,CO2 30.3 mmol/L (21.0-32.0); CREATININE 1.2 mg/dL (0.8-1.3); EST CRCL DRUG DOSING (CG) 70.37 mL/min; POTASSIUM,K 3.8 mmol/L (3.5-5.1); PROTEIN TOTAL,TP 7.1 g/dL (6.4-8.2)
[2024-03-24] MEDS: cefTRIAXone 1 GM in Sodium Chloride 0.9% 50 ML IV ONE (04:05)
== END 2024-03-24 04:57 | disposition home or self-care (01) ==
LOC: MW.ED 02:36
DX: L03.116 Cellulitis of left lower limb (principal); I10 Essential (primary) hypertension; Z79.899 Other long term (current) drug therapy; Z88.1 Allergy status to other antibiotic agents; Z75.8 Other problems related to medical facilities and other health care
CPT/HCPCS: 36415; 80053; 83605; 85025; 96365; 99283; J0696; J3490

== ENCOUNTER 2024-04-06 22:15 | Inpatient (IN) | payer SELFPAY ==
[2024-04-06 22:55] LABS: BASOPHILS ABSOLUTE AUTO 0.05 K/uL (0.00-0.20); BASOPHILS PERCENT AUTO 0.7 % (0.0-1.0); EOSINOPHILS ABSOLUTE AUTO 0.15 K/uL (0.00-0.45); EOSINOPHILS PERCENT AUTO 2.2 % (0.0-6.0); HEMATOCRIT 39.5 % (42.0-52.0); HEMOGLOBIN 13.7 g/dL (14.0-18.0); IMMATURE GRAN ABSOLUTE AUTO 0.03 K/uL (0.00-0.05); IMMATURE GRAN PERCENT AUTO 0.4 % (0.0-0.4); LYMPHOCYTES ABSOLUTE AUTO 2.41 K/uL (1.00-4.80); LYMPHOCYTES PERCENT AUTO 35.2 % (24.0-44.0); MEAN CORPUSCULAR HEMOGLOBIN 30.9 pg (28.0-32.0); MEAN CORPUSCULAR HGB CONC 34.7 g/dL (32.0-36.0); MEAN CORPUSCULAR VOLUME 89.2 fL (83.0-99.0); MEAN PLATELET VOLUME 8.7 fL (9.4-12.4); MONOCYTES ABSOLUTE AUTO 0.64 K/uL (0.00-0.80); MONOCYTES PERCENT AUTO 9.3 % (0.0-8.0); NEUTROPHILS ABSOLUTE AUTO 3.57 K/uL (1.80-7.70); NEUTROPHILS PERCENT AUTO 52.2 % (41.0-71.0); PLATELET COUNT,PLT 245 K/uL (150-400); RED BLOOD CELL COUNT 4.43 M/uL (4.52-5.90); WHITE BLOOD CELL COUNT,WBC 6.85 K/uL (3.9-11.3)
[2024-04-06 23:06] LABS: INR 0.95 (0.86-1.11)
[2024-04-06 23:10] LABS: CARBON DIOXIDE,CO2 27.7 mmol/L (21.0-32.0); CREATININE 1.4 mg/dL (0.8-1.3); EST CRCL DRUG DOSING (CG) 60.32 mL/min; POTASSIUM,K 3.5 mmol/L (3.5-5.1)
[2024-04-07] MEDS: cefTRIAXone 1 GM in Sodium Chloride 0.9% 50 ML IV ONE ×2 (00:36→03:36)
[2024-04-07] MEDS: VANCOmycin 2 GM/400 ML 2 GM in Premix Bag 1 BAG IV ONE (00:53)
[2024-04-07 06:35] LABS: HEMATOCRIT 42.4 % (42.0-52.0); HEMOGLOBIN 14.3 g/dL (14.0-18.0); MEAN CORPUSCULAR HEMOGLOBIN 30.5 pg (28.0-32.0); MEAN CORPUSCULAR HGB CONC 33.7 g/dL (32.0-36.0); MEAN CORPUSCULAR VOLUME 90.4 fL (83.0-99.0); MEAN PLATELET VOLUME 8.9 fL (9.4-12.4); PLATELET COUNT,PLT 243 K/uL (150-400); RED BLOOD CELL COUNT 4.69 M/uL (4.52-5.90); WHITE BLOOD CELL COUNT,WBC 7.49 K/uL (3.9-11.3)
[2024-04-07 06:52] LABS: CALCIUM 8.6 mg/dL (8.5-10.1); CARBON DIOXIDE,CO2 27.5 mmol/L (21.0-32.0); CREATININE 1.1 mg/dL (0.8-1.3); EST CRCL DRUG DOSING (CG) 76.77 mL/min; POTASSIUM,K 3.6 mmol/L (3.5-5.1)
[2024-04-07 08:04] LABS: BASOPHILS ABSOLUTE MAN 0.07 K/uL (0.00-0.20); BASOPHILS PERCENT MAN 1 % (0-1); EOSINOPHILS ABSOLUTE MAN 0.15 K/uL (0.00-0.45); EOSINOPHILS PERCENT MAN 2 % (0-6); LYMPHOCYTES ABSOLUTE MAN 2.62 K/uL (1.00-4.80); LYMPHOCYTES PERCENT MAN 35 % (24-44); MONOCYTES ABSOLUTE MAN 1.42 K/uL (0.00-0.80); MONOCYTES PERCENT MAN 19 % (0-8); SEG NEUTROPHILS ABSOLUTE MAN 3.22 K/uL (1.80-7.70); SEG NEUTROPHILS PERCENT MAN 43 % (41-71)
[2024-04-07 09:02] LABS: HEMOGLOBIN A1C 5.8 %
[2024-04-07] MEDS ORDERED: Polyethylene Glycol 3350 Powder 17 GM Packet PO PRN (09:18)
[2024-04-07] MEDS ORDERED: Sodium Chloride 0.9% 2.5 ML Syringe FLUSH PRN (09:18)
[2024-04-07] MEDS ORDERED: Acetaminophen 325 MG Tab PO PRN (09:18)
[2024-04-07] MEDS ORDERED: Ondansetron 4 MG/2 ML SDV IVPUSH PRN (09:18)
[2024-04-07] MEDS ORDERED: Ibuprofen 400 MG Tab PO PRN (09:18)
[2024-04-07] MEDS ORDERED: Docusate Sodium 100 MG Cap PO PRN (09:18)
[2024-04-07] MEDS: Lisinopril 10 MG Tab PO SCH (09:31)
[2024-04-07] MEDS: Diphtheria,Pertussis(Acell),Tetanus Vaccine 0.5 ML Syringe IM ONE (09:49)
[2024-04-07] MEDS: Enoxaparin 40 MG/0.4 ML Syringe SUBCUT SCH (09:49)
[2024-04-07] MEDS: Iopamidol 755 MG/ML 500 ML Multipack Bottle IVPUSH STA (10:22)
[2024-04-07] MEDS: Labetalol 100 MG/20 ML MDV IVPUSH PRN (16:35)
[2024-04-08] MEDS ORDERED: VANCOmycin 1.5 GM/300 ML 300 ML IV SCH (01:00)
[2024-04-08] MEDS: cefTRIAXone 2 GM in Sodium Chloride 0.9% 50 ML IV SCH (02:10)
[2024-04-08 06:28] LABS: BASOPHILS ABSOLUTE AUTO 0.02 K/uL (0.00-0.20); BASOPHILS PERCENT AUTO 0.3 % (0.0-1.0); EOSINOPHILS ABSOLUTE AUTO 0.18 K/uL (0.00-0.45); EOSINOPHILS PERCENT AUTO 2.4 % (0.0-6.0); HEMOGLOBIN 14.1 g/dL (14.0-18.0); IMMATURE GRAN ABSOLUTE AUTO 0.04 K/uL (0.00-0.05); IMMATURE GRAN PERCENT AUTO 0.5 % (0.0-0.4); LYMPHOCYTES ABSOLUTE AUTO 1.32 K/uL (1.00-4.80); LYMPHOCYTES PERCENT AUTO 17.6 % (24.0-44.0); MEAN CORPUSCULAR HEMOGLOBIN 30.2 pg (28.0-32.0); MEAN CORPUSCULAR HGB CONC 33.6 g/dL (32.0-36.0); MEAN CORPUSCULAR VOLUME 89.9 fL (83.0-99.0); MEAN PLATELET VOLUME 8.8 fL (9.4-12.4); MONOCYTES ABSOLUTE AUTO 0.63 K/uL (0.00-0.80); MONOCYTES PERCENT AUTO 8.4 % (0.0-8.0); NEUTROPHILS ABSOLUTE AUTO 5.29 K/uL (1.80-7.70); NEUTROPHILS PERCENT AUTO 70.8 % (41.0-71.0); PLATELET COUNT,PLT 238 K/uL (150-400); RED BLOOD CELL COUNT 4.67 M/uL (4.52-5.90); WHITE BLOOD CELL COUNT,WBC 7.48 K/uL (3.9-11.3)
[2024-04-08 07:06] LABS: CALCIUM 8.6 mg/dL (8.5-10.1); CARBON DIOXIDE,CO2 26.4 mmol/L (21.0-32.0); CREATININE 1.1 mg/dL (0.8-1.3); EST CRCL DRUG DOSING (CG) 76.77 mL/min; POTASSIUM,K 3.9 mmol/L (3.5-5.1)
[2024-04-08] MEDS: Nicotine 14 MG/24 Hr Patch TRDERM SCH (12:20)
[2024-04-08] MEDS ORDERED: LORazepam 1 MG Tab PO PRN (14:44)
[2024-04-08] MEDS: LORazepam 2 MG/ML SDV IVPUSH ONE (15:10)
[2024-04-08] MEDS: Sodium Chloride 0.9% 10 ML Syringe FLUSH PRN (15:53)
[2024-04-08] MEDS: Melatonin 3 MG Tab PO PRN (20:49)
[2024-04-09 05:48] LABS: BASOPHILS ABSOLUTE AUTO 0.02 K/uL (0.00-0.20); BASOPHILS PERCENT AUTO 0.3 % (0.0-1.0); EOSINOPHILS ABSOLUTE AUTO 0.29 K/uL (0.00-0.45); EOSINOPHILS PERCENT AUTO 3.6 % (0.0-6.0); HEMATOCRIT 44.2 % (42.0-52.0); IMMATURE GRAN ABSOLUTE AUTO 0.04 K/uL (0.00-0.05); IMMATURE GRAN PERCENT AUTO 0.5 % (0.0-0.4); LYMPHOCYTES ABSOLUTE AUTO 1.49 K/uL (1.00-4.80); LYMPHOCYTES PERCENT AUTO 18.7 % (24.0-44.0); MEAN CORPUSCULAR HEMOGLOBIN 30.2 pg (28.0-32.0); MEAN CORPUSCULAR HGB CONC 33.9 g/dL (32.0-36.0); MEAN CORPUSCULAR VOLUME 89.1 fL (83.0-99.0); MEAN PLATELET VOLUME 8.9 fL (9.4-12.4); MONOCYTES ABSOLUTE AUTO 0.75 K/uL (0.00-0.80); MONOCYTES PERCENT AUTO 9.4 % (0.0-8.0); NEUTROPHILS ABSOLUTE AUTO 5.39 K/uL (1.80-7.70); NEUTROPHILS PERCENT AUTO 67.5 % (41.0-71.0); PLATELET COUNT,PLT 237 K/uL (150-400); RED BLOOD CELL COUNT 4.96 M/uL (4.52-5.90); WHITE BLOOD CELL COUNT,WBC 7.98 K/uL (3.9-11.3)
[2024-04-09 06:07] LABS: CALCIUM 8.9 mg/dL (8.5-10.1); CARBON DIOXIDE,CO2 28.3 mmol/L (21.0-32.0); CREATININE 1.1 mg/dL (0.8-1.3); EST CRCL DRUG DOSING (CG) 76.77 mL/min; MAGNESIUM 1.9 mg/dL (1.8-2.4); POTASSIUM,K 3.8 mmol/L (3.5-5.1)
== END 2024-04-09 11:22 | disposition home or self-care (01) | DRG 603 ==
LOC: MW.ED 22:15 → MW.MS 04-07 00:27
PROVIDERS: ADMIT Family Medicine; ATTEND Family Medicine
DX: L03.116 Cellulitis of left lower limb (principal); I10 Essential (primary) hypertension; E78.00 Pure hypercholesterolemia, unspecified; M19.90 Unspecified osteoarthritis, unspecified site; M10.9 Gout, unspecified; F41.9 Anxiety disorder, unspecified; F32.A Depression, unspecified; F19.90 Other psychoactive substance use, unspecified, uncomplicated; Z87.19 Personal history of other diseases of the digestive system; Z88.1 Allergy status to other antibiotic agents; Z90.49 Acquired absence of other specified parts of digestive tract
CPT/HCPCS: 36415; 73701-26-LT; 73701-LT; 80048; 80202; 83036; 83735; 85007; 85025; 85027; 85610; 90471; 90715; 93971-26-LT; 93971-LT; 99284; A9270-GY; J0696; J1650; J1920; J2060; J3371; J3372; J3490; J7050; Q9967

== ENCOUNTER 2025-03-05 09:07 | Emergency (ER) | payer SELFPAY ==
[2025-03-05 09:57] LABS: BASOPHILS ABSOLUTE AUTO 0.06 K/uL (0.00-0.20); BASOPHILS PERCENT AUTO 0.7 % (0.0-1.0); EOSINOPHILS ABSOLUTE AUTO 0.09 K/uL (0.00-0.45); EOSINOPHILS PERCENT AUTO 1.0 % (0.0-6.0); IMMATURE GRAN ABSOLUTE AUTO 0.05 K/uL (0.00-0.05); IMMATURE GRAN PERCENT AUTO 0.6 % (0.0-0.4); LYMPHOCYTES ABSOLUTE AUTO 2.20 K/uL (1.00-4.80); LYMPHOCYTES PERCENT AUTO 24.5 % (24.0-44.0); MEAN PLATELET VOLUME 9.2 fL (9.4-12.4); MONOCYTES ABSOLUTE AUTO 0.60 K/uL (0.00-0.80); MONOCYTES PERCENT AUTO 6.7 % (0.0-8.0); NEUTROPHILS ABSOLUTE AUTO 5.97 K/uL (1.80-7.70); NEUTROPHILS PERCENT AUTO 66.5 % (41.0-71.0); NRBC ABSOLUTE 0.00 K/uL (0.00-0.02); NRBC PERCENT 0.0 /100WBC (0.0-0.2); PLATELET COUNT,PLT 263 K/uL (150-400); RED BLOOD CELL COUNT 5.14 M/uL (4.52-5.90); WHITE BLOOD CELL COUNT,WBC 8.97 K/uL (3.9-11.3)
[2025-03-05 10:13] LABS: INR 0.99 (0.86-1.11)
[2025-03-05 10:24] LABS: A/G RATIO 1.3 (0.9-1.6); ALANINE AMINOTRANSFERASE,ALT 27.0 IU/L (14-63); ASPARTATE AMNIOTRANSFERASE,AST 17.0 IU/L (15-37); BILIRUBIN TOTAL 0.7 mg/dL (0.2-1.0); BLOOD UREA NITROGEN,BUN 15.0 mg/dL (7.0-18.0); CARBON DIOXIDE,CO2 26.1 mmol/L (21.0-32.0); CHLORIDE,CL 108.0 mmol/L (98-107); CREATININE 1.0 mg/dL (0.8-1.3); EST CRCL DRUG DOSING (CG) 83.47 mL/min; ESTIMATED GFR 89.0 mL/min (>60); GLUCOSE RANDOM 115.0 mg/dL (74-106); POTASSIUM,K 3.9 mmol/L (3.5-5.1); PROTEIN TOTAL,TP 6.8 g/dL (6.4-8.2); SODIUM,NA 144.0 mmol/L (136-148)
[2025-03-05] MEDS: Iopamidol 755 MG/ML 500 ML Multipack Bottle IVPUSH STA (10:39)
== END 2025-03-05 12:55 | disposition home or self-care (01) ==
LOC: MW.ED 09:07
DX: R07.9 Chest pain, unspecified (principal); R03.0 Elevated blood-pressure reading, without diagnosis of hypertension; R25.2 Cramp and spasm; I10 Essential (primary) hypertension; Z88.8 Allergy status to other drugs, medicaments and biological substances; Z79.899 Other long term (current) drug therapy; Z90.49 Acquired absence of other specified parts of digestive tract
CPT/HCPCS: 36415; 71045; 71275; 80053; 83735; 84484; 85025; 85610; 87428; 93005; 93971; 96360; 99285; J7030; Q9967; 93010; 99283

== ENCOUNTER 2025-03-05 15:09 | Emergency (ER) | payer SELFPAY ==
[2025-03-05] MEDS ORDERED: Sodium Chloride 0.9% 2.5 ML Syringe FLUSH PRN (15:19)
[2025-03-05] MEDS ORDERED: Sodium Chloride 0.9% 10 ML Syringe FLUSH PRN (15:19)
[2025-03-05 15:34] LABS: MEAN PLATELET VOLUME 9.2 fL (9.4-12.4); NRBC ABSOLUTE 0.00 K/uL (0.00-0.02); NRBC PERCENT 0.0 /100WBC (0.0-0.2); PLATELET COUNT,PLT 289 K/uL (150-400); RED BLOOD CELL COUNT 5.49 M/uL (4.52-5.90); WHITE BLOOD CELL COUNT,WBC 21.88 K/uL (3.9-11.3)
[2025-03-05] MEDS: Ondansetron 4 MG/2 ML SDV IVPUSH ONE (15:37)
[2025-03-05 15:49] LABS: INR 1.03 (0.86-1.11); PTT,PARTIAL THROMBOPLSTIN TIME 26.4 SEC (23.9-30.7)
[2025-03-05 15:52] LABS: BASOPHILS ABSOLUTE MAN 0.22 K/uL (0.00-0.20); BASOPHILS PERCENT MAN 1 % (0-1); LYMPHOCYTES ABSOLUTE MAN 1.31 K/uL (1.00-4.80); LYMPHOCYTES PERCENT MAN 6 % (24-44); MONOCYTES ABSOLUTE MAN 2.19 K/uL (0.00-0.80); MONOCYTES PERCENT MAN 10 % (0-8); SEG NEUTROPHILS ABSOLUTE MAN 18.16 K/uL (1.80-7.70); SEG NEUTROPHILS PERCENT MAN 83 % (41-71)
[2025-03-05 16:02] LABS: A/G RATIO 1.3 (0.9-1.6); ALANINE AMINOTRANSFERASE,ALT 32.0 IU/L (14-63); ASPARTATE AMNIOTRANSFERASE,AST 24.0 IU/L (15-37); BILIRUBIN TOTAL 0.8 mg/dL (0.2-1.0); BLOOD UREA NITROGEN,BUN 16.0 mg/dL (7.0-18.0); CARBON DIOXIDE,CO2 28.3 mmol/L (21.0-32.0); CHLORIDE,CL 106.0 mmol/L (98-107); CREATININE 1.3 mg/dL (0.8-1.3); EST CRCL DRUG DOSING (CG) 64.2 mL/min; GLUCOSE RANDOM 149.0 mg/dL (74-106); POTASSIUM,K 4.2 mmol/L (3.5-5.1); PROTEIN TOTAL,TP 7.7 g/dL (6.4-8.2); SODIUM,NA 141.0 mmol/L (136-148)
[2025-03-05 16:04] LABS: ESTIMATED GFR 65.0 mL/min (>60)
[2025-03-05] MEDS: Amoxicillin/Clavulanate K 875-125 MG Tab PO ONE (17:45)
== END 2025-03-05 17:58 | disposition home or self-care (01) ==
LOC: MW.ED 15:09
DX: K52.9 Noninfective gastroenteritis and colitis, unspecified (principal); E86.0 Dehydration; I10 Essential (primary) hypertension; Z90.49 Acquired absence of other specified parts of digestive tract; Z88.1 Allergy status to other antibiotic agents; Z79.899 Other long term (current) drug therapy
CPT/HCPCS: 36415; 70450; 70551; 74176; 80053; 82947; 84484; 85025; 85610; 85730; 93005; 96361; 96374; 99285; A9270; J2405; J7030; 93010; 99283